=== PATIENT | female | born 1930 | race Caucasian/White ===

== ENCOUNTER → 2016-07-12 | Outpatient (CLI) | payer OTHER ==
[~2016-07-12] MED LIST: AMLO-110 PO; ASPI81TA28 PO; ATEN50TA8 PO; CALCTAB7 PO; FLUT0.15 NAE; ISOS60TA25 PO; METR0.7527 TOP; MULT-190 PO; MULT-513 PO; NTRGSL/4 UT; OMEG10007 PO; PRLSR20 PO; SIMV20TA2 PO; TRAZ50TA35 PO
--- NOTE | 2016-07-12 13:59 | MAMMOGRAPHY REPORT ---
BILATERAL DIGITAL SCREENING MAMMOGRAM WITH CAD: 07/12/2016 CLINICAL HISTORY: Routine screening. Patient has no complaints. TECHNIQUE: Bilateral CC and MLO views were obtained. Current study was also evaluated with a Comput er Aided Detection (CAD) system. COMPARISON: Comparison is made to exams dated: 06/29/2015 mammogram, 03/04/2013 mammogram, 02/08/2012 m ammogram, 02/06/2011 mammogram - [facility], and 01/29/2009. BREAST COMPOSITION: There are scattered areas of fibroglandular density in both breasts. FINDINGS: There are moderate vascular calcifications in both breasts. There is nodularity in the a nterior upper outer right breast that appears very similar dating back to at least , therefore likely benign. No new suspicious mass, architectural distortion or cluster of microcalcifications i s seen. IMPRESSION: ACR BI-RADS CATEGORY 2: BENIGN There is no mammographic evidence of malignancy. A 1 year screening mammogram is recommended. The p atient will receive written notification of the results. Approximately 10% of breast cancers are not detected with mammography. A negative mammographic repor t should not delay biopsy if a clinically suggestive mass is present. Margarita Holder M.D. ay/:07/12/2016 12:26:53 Lab Support Service Tech: Digna Hurtado, [facility] letter sent: Normal 1/2 BI-RADS Code: ACR BI-RADS Category 2: Benign
== END | disposition home or self-care (01) ==
LOC: C.MAMM 10:42
PROVIDERS: ATTEND Family Medicine
DX: Z12.31 Encounter for screening mammogram for malignant neoplasm of breast (principal)

== ENCOUNTER → 2016-08-21 | Outpatient (CLI) | payer OTHER ==
[2016-08-21 14:48] LABS: BLOOD UREA NITROGEN 21 mg/dl (7-18); BUN/CREATININE RATIO 21.2 (10-20); CALCIUM 8.9 mg/dl (8.5-10.1); CARBON DIOXIDE 29 mmol/L (21-32); CHLORIDE 100 mmol/L (98-107); GLUCOSE 120 mg/dl (70-99); POTASSIUM 4.1 mmol/L (3.5-5.1); SODIUM 138 mmol/L (136-145)
[2016-08-21 15:00] LABS: ALB/GLOB RATIO 1.1 (0.9-2); ALKALINE PHOSPHATASE 77 U/L (45-117); ALT/SGPT 19 U/L (12-78); AST/SGOT 18 U/L (15-37); CHOLESTEROL 142 mg/dl (0-200); CHOLESTEROL/HDL RATIO 3.8; HDL CHOLESTEROL 37 mg/dl; LDL CHOLESTEROL CALCULATED 71 mg/dl; TRIGLYCERIDES 172 mg/dl (0-150); VERY LOW DENSITY LIPOPROT CALC 34 mg/dl
== END | disposition home or self-care (01) ==
LOC: C.LABPVFM 08:33
PROVIDERS: ATTEND Family Medicine
DX: I25.10 Atherosclerotic heart disease of native coronary artery without angina pectoris (principal); E78.00 Pure hypercholesterolemia, unspecified; I10 Essential (primary) hypertension; K21.9 Gastro-esophageal reflux disease without esophagitis; J30.9 Allergic rhinitis, unspecified

== ENCOUNTER → 2016-12-01 | Outpatient (CLI) | payer OTHER ==
[~2016-12-01] MED LIST changes: +GLC/500 PO; +RANI150T3 PO
== END | disposition home or self-care (01) ==
LOC: C.LABPVFM 15:29
PROVIDERS: ATTEND Family Medicine
DX: R05 Cough (principal)

== ENCOUNTER 2017-03-07 22:04 | Emergency (ER) | payer OTHER ==
[~2017-03-07] VITALS: Ht 160 cm; Wt 66.7 kg
[2017-03-07 22:07] VITALS: TEMP 36.4; Ht 160 cm; Wt 66.7 kg
[2017-03-07 22:20] VITALS: O2SAT 96
[2017-03-07] MEDS ORDERED: CALCTAB7 PO (22:54)
[2017-03-07] MEDS ORDERED: MULT-190 PO (22:54)
[2017-03-07] MEDS ORDERED: ASPI81TA28 PO (22:54)
[2017-03-07] MEDS ORDERED: FLUT0.15 NAE (22:54)
[2017-03-07] MEDS ORDERED: METR0.7527 TOP (22:54)
[2017-03-07] MEDS ORDERED: OMEG10007 PO (22:54)
[2017-03-07] MEDS ORDERED: ATEN50TA8 PO (22:54)
[2017-03-07] MEDS ORDERED: ISOS60TA25 PO (22:54)
[2017-03-07] MEDS ORDERED: PRLSR20 PO (22:54)
[2017-03-07] MEDS ORDERED: TRAZ50TA35 PO (22:54)
[2017-03-07] MEDS ORDERED: NTRGSL/4 UT (22:54)
[2017-03-07] MEDS ORDERED: MULT-513 PO (22:54)
[2017-03-07] MEDS ORDERED: SIMV20TA2 PO (22:54)
[2017-03-07] MEDS ORDERED: AMLO-110 PO (22:54)
[2017-03-07 22:56] LABS: BASO % 0.3 %; BASO ABS # 0.03 K/uL (0-0.2); COMPLETE YES; EOS % 0.1 %; HEMATOCRIT 38.5 % (37-47); IG% 0.3 %; LYMPH % 15.1 %; LYMPH ABS # 1.75 K/uL (1.2-3.4); MEAN CELL VOLUME 85.6 fL (80-100); MEAN CORPUSCULAR HGB CONC 32.7 g/dl (32-36); MEAN PLATELET VOLUME 10.2 fL (7.4-10.4); MONO % 2.5 %; NEUT % 81.7 %; PLATELET COUNT 293 K/uL (130-400); WHITE BLOOD COUNT 11.62 K/uL (4.8-10.8)
[2017-03-07] MEDS ORDERED: ONDANSETRON INJ 2 MG/ML 2 ML VIAL IV STA (23:07)
[2017-03-07 23:09] LABS: URINE APPEARANCE CLEAR (CLEAR); URINE BILIRUBIN NEG (NEG); URINE COLOR YELLOW; URINE NITRITE NEG (NEG); URINE SPECIFIC GRAVITY 1.019 (1.000-1.030); UROBILINOGEN NEG (NEG); ZZUR CULT IF INDIC CLEAN CATCH NO
[2017-03-07 23:17] LABS: ALT/SGPT 19 U/L (12-78); BLOOD UREA NITROGEN 20 mg/dl (7-18); BUN/CREATININE RATIO 20.1 (10-20); CALCIUM 9.5 mg/dl (8.5-10.1); CARBON DIOXIDE 26 mmol/L (21-32); CHLORIDE 96 mmol/L (98-107); GLUCOSE 179 mg/dl (70-99); POTASSIUM 3.7 mmol/L (3.5-5.1); SODIUM 129 mmol/L (136-145)
[2017-03-07 23:20] LABS: ALKALINE PHOSPHATASE 89 U/L (45-117); AST/SGOT 18 U/L (15-37); MANUAL MICROSCOPIC REQUIRED? NO; REVIEW REQ? NO
--- NOTE | 2017-03-07 23:54 | EMERGENCY ROOM VISIT NOTE ---
History Report prepared by Adia: Jatinder Mcgill Under the Supervision of: Dr. Toby Leal D.O. First contact with patient: 22:18 Chief Complaint: HYPERTENSION Stated Complaint: LIGHTHEADED, NAUSEA, ELEVATED BP History of Present Illness The patient is a 87 year old female who presents to the Emergency Room with complaints of intermittent nausea beginning last week. The patient states that she has no abdominal pain, but she has a "funny feeling" in her epigastric area. She also complains of generalized weakness. She estimates that she has episodes of weakness every 35 minutes. The patient denies any fevers, vomiting or diarrhea. She was seen by her PCP yesterday and was told that her symptoms may be related to GERD. She was started on Omeprazole which she took for the first time today. She was also taken off of multiple medications. Source of History: patient Onset: last week Position: abdomen (epigastric) Quality: other (nausea) Timing: intermittent Associated Symptoms: + weakness (generalized), No fevers, No vomiting, No diarrhea Review of Systems See HPI for pertinent positives and negatives. A total of ten systems were reviewed and were otherwise negative. Past Medical & Surgical Medical Problems: (1) GERD (gastroesophageal reflux disease) Family History No pertinent family history stated. Social History Smoking Status: Never Smoker Housing Status: lives with family Current/Historical Medications Scheduled Amlodipine (Norvasc), 5 MG PO DAILY Aspirin (Aspirin Ec), 81 MG PO DAILY Atenolol (Tenormin), 50 MG PO DAILY Calcium Carbonate-Vitamin D W/ (Caltrate 600 Plus), 1 TAB PO DAILY Fish Oil ([place]-3), 1 CAP PO DAILY Fluticasone Propionate (Nasal) (Flonase Allergy Relief), 2 SPRAYS KRISTOFER DAILY Isosorbide Mononitrate Ext Rel (Imdur Ext Rel), 60 MG PO QAM Metronidazole (Topical) (Metrogel), 1 APPLN TOP DAILY Multivitamins/Minerals (Mvi With Minerals), 1 TAB PO DAILY Nitroglycerin (Nitrostat), 0.4 MG UT PRN Ocuvite Preservision (Ocuvite Preservision), 1 TAB PO DAILY Omeprazole (Prilosec), 20 MG PO BID Simvastatin (Zocor), 20 MG PO QPM Trazodone Hcl (Trazodone), 50 MG PO DAILY Allergies Uncoded Allergies: DIFLUNISAL (Generic Allergy) (Allergy, Unknown, Y, 08/16/15) DOLOBID (Allergy, Unknown, 08/14/02) N (Allergy, Unknown, 08/14/02) NONSTEROIDAL (Allergy, Unknown, 08/16/15) Physical Exam Vital Signs Date Time Temp Pulse Resp B/P (MAP) Pulse Ox O2 Delivery O2 Flow Rate FiO2 03/07/17 23:05 72 18 167/76 95 Room Air 03/07/17 22:20 96 Room Air 03/07/17 22:19 74 03/07/17 22:07 36.4 72 18 181/76 96 Room Air Physical Exam GENERAL: Awake, alert, well-appearing, in no distress HENT: Normocephalic, atraumatic. Oropharynx unremarkable. EYES: Normal conjunctiva. Sclera non-icteric. NECK: Supple. No nuchal rigidity. FROM. No JVD. RESPIRATORY: Clear to auscultation. CARDIAC: Regular rate, normal rhythm. Extremities warm and well perfused. Pulses equal. ABDOMEN: Soft, non-distended. No tenderness to palpation. No rebound or guarding. No masses. RECTAL: Deferred. MUSCULOSKELETAL: Chest examination reveals no tenderness. The back is symmetrical on inspection without obvious abnormality. There is no CVA tenderness to palpation. No joint edema. LOWER EXTREMITIES: Calves are equal size bilaterally and non-tender. No edema. No discoloration. NEURO: Normal sensorium. No sensory or motor deficits noted. SKIN: No rash or jaundice noted. PSYCH: Anxious. Medical Decision & Procedures ER Provider Diagnostic Interpretation: CT results per statrad and my review. CT ABDOMEN & PELVIS: No evidence of appendicitis, colitis, or diverticulitis. Small hiatal hernia. Cardiomegaly. No radiodense gallstones. No renal calculi or obstructive changes. Hysterectomy. Lipoma in a small bowel segment in the right lower abdomen. 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 Compression deformity of T11. Laboratory Results 03/07/17 22:35 Red Blood Count 4.50, Mean Corpuscular Volume 85.6, Mean Corpuscular Hemoglobin 28.0, Mean Corpuscular Hemoglobin Concent 32.7, Mean Platelet Volume 10.2, Neutrophils (%) (Auto) 81.7, Lymphocytes (%) (Auto) 15.1, Monocytes (%) (Auto) 2.5, Eosinophils (%) (Auto) 0.1, Basophils (%) (Auto) 0.3, Neutrophils # (Auto) 9.51, Lymphocytes # (Auto) 1.75, Monocytes # (Auto) 0.29, Eosinophils # (Auto) 0.01, Basophils # (Auto) 0.03 03/07/17 22:35 Test 03/07/17 22:35 White Blood Count 11.62 K/uL (4.8-10.8) Red Blood Count 4.50 M/uL (4.2-5.4) Hemoglobin 12.6 g/dL (12.0-16.0) Hematocrit 38.5 % (37-47) Mean Corpuscular Volume 85.6 fL (80-100) Mean Corpuscular Hemoglobin 28.0 pg (25-34) Mean Corpuscular Hemoglobin Concent 32.7 g/dl (32-36) Platelet Count 293 K/uL (130-400) Mean Platelet Volume 10.2 fL (7.4-10.4) Neutrophils (%) (Auto) 81.7 % Lymphocytes (%) (Auto) 15.1 % Monocytes (%) (Auto) 2.5 % Eosinophils (%) (Auto) 0.1 % Basophils (%) (Auto) 0.3 % Neutrophils # (Auto) 9.51 K/uL (1.4-6.5) Lymphocytes # (Auto) 1.75 K/uL (1.2-3.4) Monocytes # (Auto) 0.29 K/uL (0.11-0.59) Eosinophils # (Auto) 0.01 K/uL (0-0.5) Basophils # (Auto) 0.03 K/uL (0-0.2) RDW Standard Deviation 39.8 fL (36.4-46.3) RDW Coefficient of Variation 12.6 % (11.5-14.5) Immature Granulocyte % (Auto) 0.3 % Immature Granulocyte # (Auto) 0.03 K/uL (0.00-0.02) Urine Color YELLOW Urine Appearance CLEAR (CLEAR) Urine pH 7.0 (4.5-7.5) Urine Specific [place] 1.019 (1.000-1.030) Urine Protein 3+ (NEG) Urine Glucose (UA) NEG (NEG) Urine Ketones NEG (NEG) Urine Occult Blood NEG (NEG) Urine Nitrite NEG (NEG) Urine Bilirubin NEG (NEG) Urine Urobilinogen NEG (NEG) Urine Leukocyte Esterase NEG (NEG) Urine WBC (Auto) 1-5 /hpf (0-5) Urine RBC (Auto) 0-4 /hpf (0-4) Urine Hyaline Casts (Auto) 0 /lpf (0-5) Urine Epithelial Cells (Auto) 10-20 /lpf (0-5) Urine Bacteria (Auto) NEG (NEG) Anion Gap 7.0 mmol/L (3-11) Est Creatinine Clear Calc Drug Dose 37.7 ml/min Estimated GFR () 59.5 Estimated GFR (Non- 51.3 BUN/Creatinine Ratio 20.1 (10-20) Calcium Level 9.5 mg/dl (8.5-10.1) Total Bilirubin 0.4 mg/dl (0.2-1) Direct Bilirubin < 0.1 mg/dl (0-0.2) Aspartate Amino Transf (AST/SGOT) 18 U/L (15-37) Alanine Aminotransferase (ALT/SGPT) 19 U/L (12-78) Alkaline Phosphatase 89 U/L (45-117) Total Protein 8.3 gm/dl (6.4-8.2) Albumin 4.2 gm/dl (3.4-5.0) Lipase 93 U/L (73-393) Laboratory results reviewed by me Medications Administered Medications (Trade) Dose Ordered Sig/Jose A Route Start Time Stop Time Status Last Admin Dose Admin Ondansetron HCl (Zofran Inj) 4 mg NOW STAT IV 03/07/17 23:07 03/07/17 23:08 DC 03/07/17 23:13 4 MG ED Course 2220: The patient was evaluated in room C1B. A complete history and physical exam was performed. 2306: Ordered Zofran Inj 4 mg IV. 2354: I reevaluated the patient. Discussed results and discharge instructions: she verbalized understanding and agreement. The patient is ready for discharge. Medical Decision Differential diagnoses include but are not limited to; gastritis, gastroenteritis, anxiety, metabolic derangement, and GERD. Repeat examination the patient at 2355 she smiling resting in no distress her blood pressure is decreased she has no significant abdominal pain she is no current chest pain shortness of breath. I discussed the findings with the patient patient's and the patient's daughter. Patient had been treated with IV Zofran she felt much improved. I do not think that she has an intra- abdominal process at this time she was told that she has acid reflux by her primary care physician. She will return for worsening symptoms or any concerns Medication Reconcilliation Current Medication List: was personally reviewed by me Blood Pressure Screening Patient's blood pressure: Elevated blood pressure Blood pressure disposition: Referred to PCP Impression Primary Impression: Nausea Additional Impression: Anxiety Scribe Attestation The scribe's documentation has been prepared under my direction and personally reviewed by me in its entirety. I confirm that the note above accurately reflects all work, treatment, procedures, and medical decision making performed by me. Departure Information Dispostion Home / Self-Care Referrals Karlo Leon M.D. (PCP) Patient Instructions ED Nausea Vomiting, My [facility] Additional Instructions Follow-up with your primary care physician this week and repeat lab work regarding her sodium within one week and return for any concerns or worsening of symptoms Problem Qualifiers
[2017-03-08] MEDS ORDERED: ONDANSETRON HOME PACK 4MG OD TAB PO ONE
[2017-03-08 00:10] VITALS: BP 151/72; PULSE 73; O2SAT 96
--- NOTE | 2017-03-08 06:48 | DIAGNOSTIC IMAGING REPORT ---
ABD/PELVIS NO IV OR ORAL CONT CT DOSE: 382.77 mGy.cm HISTORY: Pain. pain TECHNIQUE: Multiaxial CT images of the abdomen and pelvis were performed without contrast. A dose lowering technique was utilized adhering to the principles of ALARA. COMPARISON STUDY: None. FINDINGS: Minimal bibasilar interstitial change lung bases. No focal infiltrate. Size and configuration of liver spleen and pancreas are unremarkable. Gallbladder is negative for distention. Kidneys negative for calcification or hydronephrosis. The adrenal glands are unremarkable. Nonobstructive bowel pattern. No significant abdominal or pelvic adenopathy. Slight wall thickening of the sigmoid colon with a trace amount of pericolonic of altered change. This presumably is chronic. Prior hysterectomy. Degenerative changes thoracolumbar spine considered nonacute. IMPRESSION: 1. Potential low-grade nonspecific colitis involving the sigmoid, versus technical lack of distention. 2. Otherwise negative study of the abdomen and pelvis. The above report was generated using voice recognition software. It may contain grammatical, syntax or spelling errors. Electronically signed by: Eldon Valero M.D. 03/08/2017 6:46 AM Dictated Date/Time: 03/08/2017 6:43 AM
== END 2017-03-08 00:12 | disposition home or self-care (01) ==
LOC: C.EDB 22:06 → C.EDC 03-08 00:12
DX: R11.0 Nausea (principal); F41.9 Anxiety disorder, unspecified; K21.9 Gastro-esophageal reflux disease without esophagitis; Z79.82 Long term (current) use of aspirin; Z79.899 Other long term (current) drug therapy; Z88.8 Allergy status to other drugs, medicaments and biological substances

== ENCOUNTER → 2017-03-14 | Outpatient (CLI) | payer OTHER ==
[~2017-03-14] MED LIST changes: -GLC/500 PO; -RANI150T3 PO
[2017-03-14 13:12] LABS: ALB/GLOB RATIO 0.9 (0.9-2); ALKALINE PHOSPHATASE 84 U/L (45-117); ALT/SGPT 20 U/L (12-78); AST/SGOT 16 U/L (15-37); BLOOD UREA NITROGEN 20 mg/dl (7-18); BUN/CREATININE RATIO 18.1 (10-20); CALCIUM 8.9 mg/dl (8.5-10.1); CARBON DIOXIDE 30 mmol/L (21-32); CHLORIDE 101 mmol/L (98-107); ESTIMATED AVERAGE GLUCOSE 163 mg/dl; GLUCOSE 137 mg/dl (70-99); HA1C FLAG Normal (Normal); HDL CHOLESTEROL 35 mg/dl; POTASSIUM 3.9 mmol/L (3.5-5.1); SODIUM 137 mmol/L (136-145)
[2017-03-14 13:13] LABS: CHOLESTEROL 161 mg/dl (0-200); CHOLESTEROL/HDL RATIO 4.6; LDL CHOLESTEROL CALCULATED 87 mg/dl; TRIGLYCERIDES 197 mg/dl (0-150); VERY LOW DENSITY LIPOPROT CALC 39 mg/dl
== END | disposition home or self-care (01) ==
LOC: C.LABPVFM 07:43
PROVIDERS: ATTEND Family Medicine
DX: E78.00 Pure hypercholesterolemia, unspecified (principal); I10 Essential (primary) hypertension; R73.9 Hyperglycemia, unspecified

== ENCOUNTER → 2017-05-11 | Day surgery (SDC) | payer OTHER ==
[2017-05-03 09:00] VITALS: Ht 157.5 cm; Wt 62.0 kg
[~2017-05-11] VITALS: Ht 157.5 cm; Wt 62.0 kg
[~2017-05-11] MED LIST changes: +ATROPINE SULFATE 0.1 MG/ML 5ML SYR IV PRN; +EpHEDrine SULFATE INJ 50 MG/ML AMP IV PRN; +FENTANYL CITRATE INJ 50 MCG/1 ML 2 ML VIAL IV PRN; +GLC/500 PO; +KETAMINE HCL INJ 50 MG/ML 10 ML VIAL ONE; +LACTATED RINGER'S 1000ML 1,000 ML IV SCH; +LIDOCAINE HCL 2% 2 ML VIAL (20MG/ML) ONE; +MIDAZOLAM HCL 1 MG/ML 2ML VIAL ONE; +PROPOFOL IV EMULSION 10 MG/ML 20 ML VIAL IV ONE; +RANI150T3 PO; +SODIUM CHLORIDE 0.9% 500ML 500 ML IV ONE; -TRAZ50TA35 PO
[2017-05-11 08:16] VITALS: BP 185/91; PULSE 56; TEMP 37.3; O2SAT 95
--- NOTE | 2017-05-11 08:42 | Endo History and Physical ---
History & Physical Date of Service: May 11, 2017. Chief Complaint: Referring Physician: History of Present Illness 87 year old female patient of Karlo Leon at [facility] [place], with a hx of A-fib ( no anticoagulation and pt does not recall being told that she has this dx), ischemic heart disease on nitroglycerine, GERD (dx'ed about a month ago by Dr. Vieira), hyperlipidemia,~IBS, new dx of DM recently started on Metformin. In the beginning of Mar she began to has a nauseous feeling in the upper stomach, worse after eating, intermittent but present most of the time. She denies and stomach pain but did have discomfort around her right side to her shoulder blade. She describes this as nausea, shaking and weakness. She was started on metformin but is sure these symptoms started prior to the metformin. She has lost about 20 lbs in the past few months but is trying to due to new dx of DM. She went to [facility] ED for these symptoms in the beginning of Mar where non contrast CT scan suggested mild colitis. She doesn't believe diarrhea at the time, but does have loose stools "off and on. Past Surgical History Hx Cardiac Surgery: Yes (CARDIAC CATH DIAGNOSTIC) Hx Abdominal Surgery: Yes (HYSTERECTOMY) Hx Post-Op Nausea and Vomiting: No Hx Cancer Surgery: No Hx Thoracic Surgery: No Hx Orthopedic: No Hx Urinary Tract Surgery: No Social History Smoking Status: Never Smoker Hx Substance Use: No Hx Alcohol Use: No Allergies Coded Allergies: Diflunisal (Verified Allergy, Unknown, SWELLING, 05/11/17) Current Medications Reported Home Medications Medications Dose Route/Sig Max Daily Dose Days Date Category Dose Instructions Glucophage (Metformin Hcl) 500 Mg Tab 500 Mg PO BID 05/03/17 Reported Zantac (Ranitidine HCl) 150 Mg Tab 150 Mg PO QAM 05/03/17 Reported [place]-3 (Fish Oil) 1 Ea Cap 1 Cap PO DAILY 03/07/17 Reported Zocor (Simvastatin) 20 Mg Tab 20 Mg PO QPM 03/07/17 Reported Ocuvite Preservision (Multivitamins/Minerals) 1 Tab Tab 1 Tab PO BID 03/07/17 Reported Prilosec (Omeprazole) 20 Mg Capcr 20 Mg PO BID 03/07/17 Reported CURRENTLY ON HOLD FOR OTHER TESTING Nitrostat (Nitroglycerin) 0.4 Mg Tab 0.4 Mg UT PRN 03/07/17 Reported Mvi With Minerals (Multivitamins/Minerals) Tab 1 Tab PO DAILY 03/07/17 Reported Metrogel (Metronidazole (Topical)) 0.75 % Gel 1 Appln TOP DAILY 03/07/17 Reported Imdur Ext Rel (Isosorbide Mononitrate) 60 Mg Ertab 60 Mg PO QAM 03/07/17 Reported Flonase Allergy Relief (Fluticasone Propionate (Nasal)) 50 Mcg/Act Spr 2 Sprays KRISTOFER DAILY 03/07/17 Reported Caltrate 600 Plus (Calcium Carbonate-Vitamin D W/) 1 Tab Tab 1 Tab PO DAILY 03/07/17 Reported Tenormin (Atenolol) 50 Mg Tab 50 Mg PO DAILY 03/07/17 Reported Aspirin Ec (Aspirin) 81 Mg Tab 81 Mg PO DAILY 03/07/17 Reported Norvasc (Amlodipine Besylate) 5 Mg Tab 5 Mg PO DAILY 03/07/17 Reported Vital Signs Weight (Kilograms): 62 Height (Feet): 5 Height (Inches): 2 Date Time Temp Pulse Resp B/P (MAP) Pulse Ox O2 Delivery O2 Flow Rate FiO2 05/11/17 08:16 37.3 56 18 185/91 (122) 95 Room Air Physical Exam General Appearance: WD/WN, + thin Respiratory/Chest: Respiratory effort: no dyspnea Auscultation: breath sounds normal, CTA except as noted Cardiovascular: Apical Impulse: not displaced Heart Auscultation: RRR, normal S1, normal S2 Abdomen: Bowel Sounds: normal Inspection & Palpation: soft, non-distended Assessment and Plan 87 yo presenting for EGD/EUS for nausea and weight loss
--- NOTE | 2017-05-11 09:51 | GI REPORT ---
Procedure Date: 05/11/2017 9:00 AM Procedure: Upper GI endoscopy Indications: Nausea Medicines: General Anesthesia Complications: No immediate complications. Estimated blood loss: None. Estimated Blood Loss: Estimated blood loss: none. Procedure: Pre-Anesthesia Assessment: - Pre-Anesthesia Assessment: - Prior to the procedure, a History and Physical was performed, and patient medications, allergies and sensitivities were reviewed. The patient's tolerance of previous anesthesia was reviewed. Please see [employer] for complete details. - The risks and benefits of the procedure and the sedation options and risks were discussed with the patient. All questions were answered and informed consent was obtained. - Patient identification and proposed procedure were verified prior to the procedure by the physician and the nurse. The procedure was verified in the pre-procedure area in the procedure room. After obtaining informed consent, the endoscope was passed carefully and meticuously under direct vision and only advanced when the lumen was clearly identified, C02 insuflation was utilized throughout the entirity of the procedure. Throughout the procedure, the patient's blood pressure, pulse, and oxygen saturations were monitored continuously. After obtaining informed consent, the endoscope was passed under direct vision. Throughout the procedure, the patient's blood pressure, pulse, and oxygen saturations were monitored continuously. The scope was introduced through the mouth, and advanced to the second part of duodenum. The upper GI endoscopy was accomplished without difficulty. The patient tolerated the procedure well. Findings: A large hiatus hernia was present. The entire examined stomach was normal. Biopsies were taken with a cold forceps for histology. The examined duodenum was normal. Biopsies were taken with a cold forceps for histology. Impression: - Large hiatus hernia. - Normal stomach. Biopsied. - Normal examined duodenum. Biopsied. Recommendation: - Await pathology results. - Discharge patient to home (with escort). - Use Prilosec (omeprazole) 20 mg PO daily as a trial. - High caloric nutritional supplements. Andi Aguillon MD 05/11/2017 9:51:04 AM This report has been signed electronically. Note Initiated On: 05/11/2017 9:00 AM I attest to the content of the Intraoperative Record and orders documented therein, exceptions below
--- NOTE | 2017-05-11 09:53 | GI REPORT ---
Procedure Date: 05/11/2017 8:59 AM Procedure: Upper EUS Indications: Generalized abdominal distress, Weight loss Medicines: General Anesthesia Complications: No immediate complications. Estimated blood loss: None. Estimated Blood Loss: Estimated blood loss: none. Procedure: Pre-Anesthesia Assessment: - Pre-Anesthesia Assessment: - Prior to the procedure, a History and Physical was performed, and patient medications, allergies and sensitivities were reviewed. The patient's tolerance of previous anesthesia was reviewed. Please see [employer] for complete details. - The risks and benefits of the procedure and the sedation options and risks were discussed with the patient. All questions were answered and informed consent was obtained. - Patient identification and proposed procedure were verified prior to the procedure by the physician and the nurse. The procedure was verified in the pre-procedure area in the procedure room. After obtaining informed consent, the endoscope was passed carefully and meticuously under direct vision and only advanced when the lumen was clearly identified, C02 insuflation was utilized throughout the entirity of the procedure. Throughout the procedure, the patient's blood pressure, pulse, and oxygen saturations were monitored continuously. After obtaining informed consent, the endoscope was passed under direct vision. Throughout the procedure, the patient's blood pressure, pulse, and oxygen saturations were monitored continuously. The Endosonoscope was introduced through the mouth, and advanced to the second part of duodenum. The upper EUS was accomplished without difficulty. The patient tolerated the procedure well. Findings: Endosonographic Finding : There was no sign of significant endosonographic abnormality in the left lobe of the liver. There was no sign of significant endosonographic abnormality in the entire pancreas. The pancreas was well visualized, no pathologic lymphadenopathy, no masses, no cysts, no calcifications, the pancreatic duct was well visualized from ampulla to tail, the pancreatic duct was thin in caliber, the pancreatic duct was regular in contour. No lymphadenopathy seen. There was no sign of significant endosonographic abnormality involving the celiac trunk. There was no sign of significant endosonographic abnormality in the common bile duct. The maximum diameter of the duct was 4 mm. An unremarkable gallbladder was identified. Impression: - There was no evidence of significant pathology in the left lobe of the liver. - There was no sign of significant pathology in the entire pancreas. - The celiac trunk was endosonographically normal. - There was no sign of significant pathology in the common bile duct. - No specimens collected. Recommendation: - Discharge patient to home (with escort). - Return to referring physician as previously scheduled. Andi Aguillon MD 05/11/2017 9:53:01 AM This report has been signed electronically. Note Initiated On: 05/11/2017 8:59 AM I attest to the content of the Intraoperative Record and orders documented therein, exceptions below
--- NOTE | 2017-05-11 09:59 | Discharge Instructions ---
Endoscopy Patient Instructions Date / Procedure(s) Performed May 11, 2017. EGD, Other (EUS) Allergy Information Coded Allergies: Diflunisal (Verified Allergy, Unknown, SWELLING, 05/11/17) Discharge Date / Findings May 11, 2017. Large Hiatal Hernia Otherwise normal Exam Biopsies were taken and you will be contacted with the results We will start you on a trial of an antacid to see if helps symptoms Provider Instructions Activity Restrictions - No exercising or heavy lifting for 24 hours. - Do not drink alcohol the day of the procedure. - Do not drive a car or operate machinery until the day after the procedure. - Do not make any important decisions or sign important papers in 24 hours after the procedure. Following Day: - Return to full activity which may include returning to work/school. Diet Start your diet with liquids and light foods (jello, soup, juice, toast). Then eat your usual diet if not nauseated. Treatment For Common After Affects For mild abdominal pain, bloating, or excessive gas: - Rest - Eat lightly - Lie on right side Follow-Up Information Follow-up with as scheduled Anesthesia Information What You Should Know You have had a procedure that required some medicine to reduce anxiety and discomfort. This treatment is called moderate sedation. After receiving the treatment, you may be sleepy, but you will be able to breathe on your own. The effects of the treatment may last for several hours. Follow these instructions along with Activity/Diet recommendations noted above: * Do NOT do anything where dizziness or clumsiness would be dangerous. * Rest quietly at home today, then you can be up and about tomorrow. * Have a responsible person stay with you the rest of today. * You may have had an I.V. today. If so, you may take the dressing off later today. Recommendations Call your doctor if: * Trouble breathing * Continuous vomiting for more than 24 hours * Temperature above 101 degrees * Severe abdominal pain or bloating * Pain not relieved by pain medicine ordered * There is increased drainage or redness from any incision * A large amount of rectal bleeding greater than 2-3 tablespoons. (If you had a polyp/s removed or have hemorrhoids, a small amount of blood - from the rectum is to be expected.) * You have any unanswered questions or concerns. IN THE EVENT OF A SERIOUS EMERGENCY, GO TO THE NEAREST EMERGENCY ROOM Your discharge instructions were prepared by provider Andi Aguillon. Patient Instructions Signature Page Shaneka Howard Patient (or Guardian) Signature/Date: I have read and understand the instructions given to me by my caregivers. Caregiver/RN/Doctor Signature/Date: The above-named patient and/or guardian has received patient instructions on this date. + Original Patient Signature Page (only) stays with chart. Please make copy for patient.
--- NOTE | 2017-05-11 10:03 | Anesthesiology Progress Note ---
Anesthesia Post Op Note Date & Time May 11, 2017 at 10:03 Vital Signs Pain Intensity: 0 Vital Signs Past 12 Hours Date Time Temp Pulse Resp B/P (MAP) Pulse Ox O2 Delivery O2 Flow Rate FiO2 05/11/17 09:55 51 17 158/66 98 Room Air 05/11/17 09:49 36.0 63 17 156/70 100 Oxymask 5 05/11/17 08:16 37.3 56 18 185/91 (122) 95 Room Air Notes Mental Status: alert / awake / arousable, participated in evaluation Pt Amnestic to Procedure: Yes Nausea / Vomiting: adequately controlled Pain: adequately controlled Airway Patency, RR, SpO2: stable & adequate BP & HR: stable & adequate Hydration State: stable & adequate Anesthetic Complications: no major complications apparent
[2017-05-11 10:15] VITALS: BP 170/74; PULSE 56; TEMP 36.5; O2SAT 96
[2017-05-11 10:44] VITALS: BP 161/73; PULSE 56; O2SAT 97
[2017-05-11 11:15] VITALS: BP 157/69; PULSE 54; TEMP 36.4; O2SAT 95
== END | disposition home or self-care (01) ==
LOC: C.ACU 07:08
PROVIDERS: ATTEND Internal Medicine
DX: K29.80 Duodenitis without bleeding (principal); K44.9 Diaphragmatic hernia without obstruction or gangrene; R63.4 Abnormal weight loss; I48.91 Unspecified atrial fibrillation; I25.9 Chronic ischemic heart disease, unspecified; E78.5 Hyperlipidemia, unspecified; E11.9 Type 2 diabetes mellitus without complications; K21.9 Gastro-esophageal reflux disease without esophagitis; K58.9 Irritable bowel syndrome, unspecified; Z79.82 Long term (current) use of aspirin; Z79.84 Long term (current) use of oral hypoglycemic drugs; Z79.899 Other long term (current) drug therapy

== ENCOUNTER → 2017-05-21 | Outpatient (CLI) | payer OTHER ==
[~2017-05-21] MED LIST changes: -ATROPINE SULFATE 0.1 MG/ML 5ML SYR IV PRN; -EpHEDrine SULFATE INJ 50 MG/ML AMP IV PRN; -FENTANYL CITRATE INJ 50 MCG/1 ML 2 ML VIAL IV PRN; -KETAMINE HCL INJ 50 MG/ML 10 ML VIAL ONE; -LACTATED RINGER'S 1000ML 1,000 ML IV SCH; -LIDOCAINE HCL 2% 2 ML VIAL (20MG/ML) ONE; -MIDAZOLAM HCL 1 MG/ML 2ML VIAL ONE; -PROPOFOL IV EMULSION 10 MG/ML 20 ML VIAL IV ONE; -SODIUM CHLORIDE 0.9% 500ML 500 ML IV ONE
--- NOTE | 2017-05-21 10:13 | DIAGNOSTIC IMAGING REPORT ---
(BARIUM SWALLOW) ESOPHAGUS CLINICAL HISTORY: UPPER GASTRIC PAIN,NAUSEA,HIATAL HERNIA COMPARISON STUDY: None. FLUOROSCOPY TIME: 0.9 minutes. 28 images submitted. FINDINGS: The patient swallowed barium without difficulty. The esophagus normal in course and caliber. Small hiatus hernia. Mild esophageal dysmotility. No gaseous of reflux. The barium tablet passed without difficulty. The contours of the hypopharynx are within normal limits. IMPRESSION: 1. Small hiatus hernia. 2. Mild esophageal dysmotility. Electronically signed by: Beau Betancourt M.D. 05/21/2017 10:11 AM Dictated Date/Time: 05/21/2017 9:30 AM
== END | disposition home or self-care (01) ==
LOC: C.RAD 08:59
PROVIDERS: ATTEND Nurse Practitioner Family
DX: R10.13 Epigastric pain (principal); R11.0 Nausea; K44.9 Diaphragmatic hernia without obstruction or gangrene; K22.4 Dyskinesia of esophagus

== ENCOUNTER → 2017-06-28 | Outpatient (CLI) | payer OTHER ==
[2017-06-28 18:08] LABS: ALT/SGPT 15 U/L (12-78); BLOOD UREA NITROGEN 20 mg/dl (7-18); BUN/CREATININE RATIO 21.8 (10-20); CALCIUM 8.9 mg/dl (8.5-10.1); CARBON DIOXIDE 29 mmol/L (21-32); CHLORIDE 100 mmol/L (98-107); CREATININE 0.93 mg/dl (0.60-1.20); GLUCOSE 112 mg/dl (70-99); POTASSIUM 4.2 mmol/L (3.5-5.1); SODIUM 133 mmol/L (136-145)
[2017-06-28 18:11] LABS: ALB/GLOB RATIO 0.9 (0.9-2); ALKALINE PHOSPHATASE 70 U/L (45-117); AST/SGOT 14 U/L (15-37)
[2017-06-29 06:36] LABS: ESTIMATED AVERAGE GLUCOSE 151 mg/dl; HA1C FLAG Normal (Normal)
== END | disposition home or self-care (01) ==
LOC: C.LABPVFM 11:30
PROVIDERS: ATTEND Family Medicine
DX: E11.9 Type 2 diabetes mellitus without complications (principal)

== ENCOUNTER → 2017-10-29 | Outpatient (CLI) | payer OTHER ==
[2017-10-29 13:19] LABS: HEMOGLOBIN A1C 6.7 % (4.5-5.6)
[2017-10-29 13:42] LABS: ALBUMIN 3.8 gm/dl (3.4-5.0); ALT/SGPT 26 U/L (12-78); AST/SGOT 29 U/L (15-37); CALCIUM 8.8 mg/dl (8.5-10.1); CARBON DIOXIDE 31 mmol/L (21-32); CHOLESTEROL 128 mg/dl (0-200); CREATININE 0.95 mg/dl (0.60-1.20); GLUCOSE 114 mg/dl (70-99); SODIUM 135 mmol/L (136-145)
[2017-10-29 13:45] LABS: ALKALINE PHOSPHATASE 66 U/L (45-117); LDL CHOLESTEROL CALCULATED 58 mg/dl; TOTAL PROTEIN 7.6 gm/dl (6.4-8.2)
[2017-10-29 13:51] LABS: BLOOD UREA NITROGEN 31 mg/dl (7-18)
== END | disposition home or self-care (01) ==
LOC: C.LABPVFM 07:34
PROVIDERS: ATTEND Family Medicine
DX: I25.10 Atherosclerotic heart disease of native coronary artery without angina pectoris (principal); E78.00 Pure hypercholesterolemia, unspecified; G47.00 Insomnia, unspecified; J01.90 Acute sinusitis, unspecified; J30.9 Allergic rhinitis, unspecified; I10 Essential (primary) hypertension; E11.9 Type 2 diabetes mellitus without complications

== ENCOUNTER 2021-07-13 12:03 | Inpatient (IN) ==
[2021-07-13] MEDS ORDERED: PIPERACILLIN/TAZOBACTAM 4.5 GM/120 ML BAG IV ONE (12:27)
[2021-07-13] MEDS ORDERED: PIPERACILL/TAZOBAC CONSULT ACTIVE PRN ×2 (12:27→17:26)
[2021-07-13] MEDS ORDERED: OPTIRAY 320 125ml IV ONE (12:30)
[2021-07-13 12:31] LABS: iSTAT Creatinine 1.1 mg/dl (0.6-1.3); iSTAT Hemoglobin 9.2 g/dl (12.0-16.0); iSTAT Ionized Calcium 1.12 mmol/l (1.12-1.32); iSTAT Potassium 4.6 mmol/L (3.3-5.0)
[2021-07-13 12:37] LABS: Basophils # (auto) 0.02 K/uL (0-0.2); Basophils % (auto) 0.1 %; Eosinophils # (auto) 0.03 K/uL (0-0.5); Eosinophils % (auto) 0.2 %; Hematocrit (blood only) 28.1 % (37-47); Immature Granulocytes # (auto) 0.05 K/uL (0.00-0.02); Immature Granulocytes % (auto) 0.3 %; Lymphocytes # (auto) 0.94 K/uL (1.2-3.4); Lymphocytes % (auto) 5.5 %; Mean Corpuscular Hemoglobin 29.8 pg (25-34); Mean Platelet Volume 10.3 fL (7.4-10.4); Monocytes # (auto) 0.92 K/uL (0.11-0.59); Monocytes % (auto) 5.4 %; Neutrophils # (auto) 14.99 K/uL (1.4-6.5); Neutrophils % (auto) 88.5 %; Platelet Count 438 K/uL (130-400); RDW Coefficient of Variation 13.6 % (11.5-14.5); RDW Standard Deviation 45.8 fL (36.4-46.3); Red Blood Count 3.02 M/uL (4.2-5.4); White Blood Count 16.95 K/uL (4.8-10.8)
--- NOTE | 2021-07-13 12:48 | Emergency Department Note ---
Impression & Plan Ischemic cerebrovascular accident (CVA), Pneumonia, Hypoxia, Anemia ED Provider Note NAME: KRISTA LEWIS AGE: 89 SEX: F : 1930 ARRIVES VIA: Ambulance INFORMANT: Patient, EMS, the patient's son ED PROVIDER(S): Sonny Lucas DO CHIEF COMPLAINT: Weakness HPI: The patient is an 89-year-old female who presented to emergency department for an evaluation of weakness. The patient has been having symptoms for approximately 5 days. She has had multiple falls recently. Her son does provide some of the history as well as EMS. The patient was noted to have worsening symptoms today as well as difficulty breathing. 911 was called. The patient was noted to have right-sided weakness and left-sided facial droop. She was not made a stroke alert initially upon arrival. The patient self denies having any chest pain. She denies having any abdominal pain. She does state that she is having difficulty breathing. The patient does not have a history of stroke. Reportedly she does not take blood thinners. She has had no dysuria or frequency. There is been no fevers noted. ROS: See above HPI for pertinent positives & negatives. A total of 10 systems reviewed and were otherwise negative. PAST MEDICAL HISTORY: See Below PAST SURGICAL HISTORY: See Below FAMILY HISTORY: See Below SOCIAL HISTORY: See Below HOME MEDICATIONS: See Below ALLERGIES: See Below VITALS: See Below PHYSICAL EXAMINATION: GENERAL: The patient is awake and alert. The patient is very anxious appearing. EYES: The conjunctivae are clear. The pupils are round and reactive. EARS, NOSE, MOUTH AND THROAT: The nose is without any evidence of any deformity. NECK: The neck is nontender and supple. RESPIRATORY: Diminished breath sounds are noted on the right lung field. There was significant tachypnea and conversational dyspnea. CARDIOVASCULAR: Regular rate and rhythm noted there no murmurs rubs or gallops normal S1 normal S2. GASTROINTESTINAL: The abdomen is soft and mildly distended. There is no tenderness guarding rigidity. Rectal exam revealed light brown stool which was heme-negative. MUSCULOSKELETAL/EXTREMITIES: There is no evidence of gross deformity full range of motion is noted in the hips and shoulders. SKIN: The skin is warm and dry. There is no significant pedal edema. NEUROLOGIC: Patient is awake and oriented to person place and situation. The patient has decreased teaching young strength in the right upper extremity. The patient is unable to lift the right leg off the bed. The patient has a left-sided facial droop with forehead sparing. MEDICAL DECISION MAKING: The patient is an 89-year-old female who presented to emergency department for an evaluation of right-sided weakness. According to her son the symptoms have been ongoing for the last 5 days. She has been falling. She was noted to have significant respiratory distress upon arrival to the emergency department. X- ray revealed a large pneumonia. I discussed the patient's laboratory and radiographic studies with her and her family members. She also appears to have an ischemic stroke based on physical exam. She was not a candidate for tPA or large vessel occlusion as her symptoms have been ongoing for 5 days. The patient was treated with IV antibiotics. She was placed on supplemental oxygen. She was reevaluated multiple times. Triage Nursing notes reviewed. Prior medical records reviewed Vital Signs: reviewed and remarkable for elevated blood pressure, low-grade fever, tachypnea. She was also noted to have hypoxia. Differential diagnosis: Infection, dehydration, metabolic abnormality, hypo/hyperglycemia, electrolyte disturbance, anemia, hypoxia, cardiac sources, intracerebral event, toxicologic, neurologic, as well as other pathologies. ER treatment provided: See below Diagnostics interpreted by me: ECG: EKG was obtained in the emergency department. My interpretation is normal sinus rhythm at 63 bpm. There is no ectopy. Inferior T wave abnormalities were noted. This was compared to a tracing from 05/11/2017. The changes are new co mpared to the earlier tracing. Cardiac Monitoring: An order was placed for continuous cardiac monitoring. The monitor shows a rate of 60 bpm with sinus rhythm. Laboratory studies: As stated above and show below. Imaging studies: See below Consultation(s): I discussed this case with Hector who is on for the [facility] jackie white. ED COURSE: Procedures: none Critical Care: I have personally spent greater than 55 minutes of critical care time in the direct management of this patient. This includes bedside care, interpretation of diagnostic studies, and testing, discussion with consultants, patient, and family members, and other required patient management activities. This 55 minutes is in excess of all separately billable procedures. Past Med/Surg History Medical History Back pain Carpal tunnel syndrome on both sides Cognitive changes Diabetes mellitus DJD (degenerative joint disease) of knee Fatigue Frequent falls GERD without esophagitis Hypercholesterolemia Lumbar stenosis Meningioma Thoracic spondylosis Surgical History H/O: hysterectomy Hx of tonsillectomy Family History Mother Coronary heart disease Father Prostate cancer malignant neoplasm of prostate Myocardial infarction Denies family history of Ovarian cancer Breast cancer Colorectal cancer Social History Smoking Status: Never smoker Second Hand Exposure: No; Hx Alcohol Use: No Hx Substance Use: No Preferred Language: [place] Furniture Crater Required: No Beliefs That Will Affect Care: None marital status: Current Living Situation: Spouse current occupational status: retired Feels Safe at Home: Yes Safety Concerns: Feels Safe At This Time caffeine: No Dental Care, Regularly: No Physical Activity Frequency: 1-2 Times per Week Physical Activity Frequency Comment: walking/chores Seatbelt Use: always Sunscreen Use: No Assistive Devices: Denture - Upper, Denture - Lower, Glasses, Hearing Aid - Bilateral and Walker Allergies Allergies Allergy/AdvReac Type Severity Reaction Status Date / Time diflunisal Allergy Unknown SWELLING Verified 07/12/21 15:32 Home Meds Home Medications Medication Instructions Recorded Confirmed loteprednol etabonate 0.5 % eye 1 drops OP DAILY ml 06/03/19 07/13/21 drops,suspension polyethylene glycol 3350 17 17 gm PO DAILY PRN gm 12/12/19 07/13/21 gram/dose oral powder (Miralax) vitamins A,C,Q-[id number] 1 tab PO BID 11/12/20 07/13/21 [PreserVision AREDS] acetaminophen 500 mg tablet 1,000 mg PO Q6H PRN 07/13/21 07/13/21 (Tylenol Extra Strength) amlodipine 5 mg tablet 5 mg PO DAILY 07/13/21 07/13/21 aspirin 81 mg tablet,delayed 81 mg PO DAILY 07/13/21 07/13/21 release atenolol 50 mg tablet 50 mg PO DAILY 07/13/21 07/13/21 calcium carbonate 160 mg calcium 0 mg PO DAILY 07/13/21 07/13/21 (400 mg) chewable tablet donepezil 5 mg tablet (Aricept) 5 mg PO HS 07/13/21 07/13/21 ibuprofen-diphenhydramine citrate 1 cap PO HS 07/13/21 07/13/21 200 mg-38 mg tablet (Advil PM) omeprazole 40 mg capsule,delayed 40 mg PO DAILY 07/13/21 07/13/21 release Previous Rx's Medication Instructions Recorded hydrocortisone 2.5 % topical cream 1 applic AR DAILY PRN #30 g 07/22/20 with perineal applicator (Proctosol HC) meclizine 25 mg tablet See Rx Instructions .ROUTE 07/22/20 .COMPLEX #30 tab nitroglycerin 0.4 mg sublingual 0.4 mg SL Q5M PRN #25 tab 11/12/20 tablet isosorbide mononitrate 60 mg 60 mg PO DAILY #90 tab 02/10/21 tablet,extended release 24 hr sertraline 50 mg tablet 25 mg PO DAILY #90 tab 02/10/21 fexofenadine 180 mg tablet 180 mg PO DAILY #30 tab 06/13/21 triamcinolone acetonide 0.1 % 1 applic TOPICAL BID #30 g 06/13/21 topical cream Results & Data (ED) Vital Signs Vital Signs - 24 hr 07/13/21 12:11 07/13/21 12:17 07/13/21 12:25 Temperature 36.6 C Temperature Source Oral Pulse Rate 62 Pulse Rate [Right] 63 Pulse Rhythm Regular Pulse Rhythm [Right] Regular Pulse Strength Normal Pulse Strength [Right] Normal Respiratory Rate 32 H 32 H Respiratory Effort / Characteristics Labored Respiratory Depth Normal Shallow Respiratory Pattern Tachypnea Tachypnea Blood Pressure 194/73 H Blood Pressure [Left Arm] 194/73 H Blood Pressure Mean 113 Blood Pressure Mean [Left Arm] 113 Blood Pressure Position Sitting Blood Pressure Position [Left Arm] Sitting Pulse Oximetry 90 82 L 82 L Oxygen Delivery Method Oxymask Room Air Oxymask Oxygen Flow Rate 6 0 Fraction of Inspired Oxygen Sepsis Recent Fever Within 48 Hours No Sepsis New/Unexplained Change in Mental Status No Sepsis Action Taken by Nursing No Action Required Oxygen Flow Rate - Titration 6 Pulse Oximetry Post Tiitration 82 L 07/13/21 12:30 07/13/21 12:38 07/13/21 12:46 Temperature Temperature Source Pulse Rate Pulse Rate [Right] 61 59 L 58 L Pulse Rhythm Pulse Rhythm [Right] Regular Regular Regular Pulse Strength Pulse Strength [Right] Normal Normal Normal Respiratory Rate 30 H 32 H 32 H Respiratory Effort / Characteristics Labored Labored Labored Respiratory Depth Shallow Shallow Shallow Respiratory Pattern Tachypnea Tachypnea Tachypnea Blood Pressure Blood Pressure [Left Arm] 203/86 H 191/92 H 196/84 H Blood Pressure Mean Blood Pressure Mean [Left Arm] 125 125 121 Blood Pressure Position Blood Pressure Position [Left Arm] Sitting Sitting Sitting Pulse Oximetry 88 L 93 93 Oxygen Delivery Method Oxymask Room Air Oxymask Oxygen Flow Rate 6 8 Fraction of Inspired Oxygen Sepsis Recent Fever Within 48 Hours Sepsis New/Unexplained Change in Mental Status Sepsis Action Taken by Nursing Oxygen Flow Rate - Titration Pulse Oximetry Post Tiitration 07/13/21 13:00 07/13/21 13:16 07/13/21 13:31 Temperature Temperature Source Pulse Rate 58 L 55 L 67 Pulse Rate [Right] Pulse Rhythm Pulse Rhythm [Right] Pulse Strength Pulse Strength [Right] Respiratory Rate 32 H 25 H 24 Respiratory Effort / Characteristics Respiratory Depth Respiratory Pattern Blood Pressure 200/81 H 189/81 H 194/84 H Blood Pressure [Left Arm] Blood Pressure Mean 120 117 120 Blood Pressure Mean [Left Arm] Blood Pressure Position Blood Pressure Position [Left Arm] Pulse Oximetry 93 93 Oxygen Delivery Method Oxymask Oxymask Oxygen Flow Rate 8 8 Fraction of Inspired Oxygen Sepsis Recent Fever Within 48 Hours Sepsis New/Unexplained Change in Mental Status Sepsis Action Taken by Nursing Oxygen Flow Rate - Titration Pulse Oximetry Post Tiitration 07/13/21 13:46 07/13/21 14:11 07/13/21 14:17 Temperature Temperature Source Pulse Rate 59 L 58 L Pulse Rate [Right] Pulse Rhythm Pulse Rhythm [Right] Pulse Strength Pulse Strength [Right] Respiratory Rate 27 H 30 H 28 H Respiratory Effort / Characteristics Non-Labored Spontaneous Respiratory Depth Normal Respiratory Pattern Regular Blood Pressure 198/117 H 198/74 H Blood Pressure [Left Arm] Blood Pressure Mean 144 115 Blood Pressure Mean [Left Arm] Blood Pressure Position Blood Pressure Position [Left Arm] Pulse Oximetry 94 95 Oxygen Delivery Method BiPAP Oxygen Flow Rate Fraction of Inspired Oxygen 60 60 Sepsis Recent Fever Within 48 Hours Sepsis New/Unexplained Change in Mental Status Sepsis Action Taken by Nursing Oxygen Flow Rate - Titration Pulse Oximetry Post Tiitration Home Medications Current Medication List: was personally reviewed by me Laboratory Data Attestation: I reviewed the patient's lab results. Result diagrams: 07/13/21 12:15 07/13/21 12:15 Lab Results 07/13/21 07/13/21 07/13/21 Range/Units 12:15 12:15 12:15 WBC 16.95 H (4.8-10.8) K/uL RBC 3.02 L (4.2-5.4) M/uL Hgb 9.0 L (12.0-16.0) g/dL POC Hgb (12.0-16.0) g/dl Hct 28.1 L (37-47) % POC Hct (37-47) % MCV 93.0 (80-100) fL MCH 29.8 (25-34) pg MCHC 32.0 (32-36) g/dL RDW Std Deviation 45.8 (36.4-46.3) fL RDW Coeff of Gustavo 13.6 (11.5-14.5) % Plt Count 438 H (130-400) K/uL MPV 10.3 (7.4-10.4) fL Immature Gran % (Auto) 0.3 % Neut % (Auto) 88.5 % Lymph % (Auto) 5.5 % [place] % (Auto) 5.4 % Eos % (Auto) 0.2 % Baso % (Auto) 0.1 % Neut # (Auto) 14.99 H (1.4-6.5) K/uL Lymph # (Auto) 0.94 L (1.2-3.4) K/uL [place] # (Auto) 0.92 H (0.11-0.59) K/uL Eos # (Auto) 0.03 (0-0.5) K/uL Baso # (Auto) 0.02 (0-0.2) K/uL Immature Gran # (Auto) 0.05 H (0.00-0.02) K/uL PT 12.5 H (9.0-12.0) Seconds INR 1.3 H (0.9-1.1) APTT 23.2 (21.0-31.0) Seconds PTT Ratio 0.9 VBG pH (7.36-7.41) VBG pCO2 (38-50) mmHg VBG pO2 mmHg VBG HCO3 mmol/L VBG O2 Saturation % VBG Base Excess mEq/L Barometric Pressure mm/Hg POC Sodium (135-144) mmol/L Sodium 129 L (136-145) mmol/L POC Potassium (3.3-5.0) mmol/L Potassium (3.5-5.1) mmol/L POC Chloride (101-112) mmol/L Chloride 95 L (98-107) mmol/L Carbon Dioxide 22 (21-32) mmol/L POC Total CO2 (24-31) mmol/L Anion Gap 12 H (3-11) POC Anion Gap (16-25) mmol/L POC BUN (7-18) mg/dl BUN 38 H (6-23) mg/dl Creatinine 1.08 (0.6-1.2) mg/dl POC Creatinine (0.6-1.3) mg/dl Est Cr Clr Drug Dosing Not Reportable Est GFR ( Amer) 52.7 ml/min Est GFR (Non-Af Amer) 45.5 ml/min BUN/Creatinine Ratio 35.2 H (10-20) Glucose 328 H* (70-99) mg/dl POC Glucose (other) (70-99) mg/dl Calcium 8.7 (8.5-10.1) mg/dl POC Ioniz Calcium Anisa (1.12-1.32) mmol/l Magnesium 2.1 (1.7-2.4) mg/dl Total Bilirubin 0.8 (0.2-1.0) mg/dl AST (13-39) U/L ALT 54 H (7-52) U/L Alkaline Phosphatase 258 H (34-104) U/L Troponin I 0.10 H* (0-0.04) ng/ml Total Protein 7.5 (6.0-8.3) gm/dl Albumin 3.3 L (3.4-5.0) gm/dl Globulin 4.2 H (2.5-4.0) gm/dl Albumin/Globulin Ratio 0.8 L (0.9-2) SARS-CoV-2 (PCR) (Negative) Influenza Type A (PCR) (Neg) Influenza Type B (PCR) (Neg) RSV (RT-PCR) (Neg) 07/13/21 07/13/21 07/13/21 Range/Units 12:19 12:30 12:46 WBC (4.8-10.8) K/uL RBC (4.2-5.4) M/uL Hgb (12.0-16.0) g/dL POC Hgb 9.2 L (12.0-16.0) g/dl Hct (37-47) % POC Hct 27 L (37-47) % MCV (80-100) fL MCH (25-34) pg MCHC (32-36) g/dL RDW Std Deviation (36.4-46.3) fL RDW Coeff of Gustavo (11.5-14.5) % Plt Count (130-400) K/uL MPV (7.4-10.4) fL Immature Gran % (Auto) % Neut % (Auto) % Lymph % (Auto) % [place] % (Auto) % Eos % (Auto) % Baso % (Auto) % Neut # (Auto) (1.4-6.5) K/uL Lymph # (Auto) (1.2-3.4) K/uL [place] # (Auto) (0.11-0.59) K/uL Eos # (Auto) (0-0.5) K/uL Baso # (Auto) (0-0.2) K/uL Immature Gran # (Auto) (0.00-0.02) K/uL PT (9.0-12.0) Seconds INR (0.9-1.1) APTT (21.0-31.0) Seconds PTT Ratio VBG pH 7.35 L (7.36-7.41) VBG pCO2 37 L (38-50) mmHg VBG pO2 36 mmHg VBG HCO3 20 mmol/L VBG O2 Saturation 65.0 % VBG Base Excess -5.1 mEq/L Barometric Pressure 731.6 mm/Hg POC Sodium 129 L (135-144) mmol/L Sodium (136-145) mmol/L POC Potassium 4.6 (3.3-5.0) mmol/L Potassium (3.5-5.1) mmol/L POC Chloride 96 L (101-112) mmol/L Chloride (98-107) mmol/L Carbon Dioxide (21-32) mmol/L POC Total CO2 24 (24-31) mmol/L Anion Gap (3-11) POC Anion Gap 15.0 L (16-25) mmol/L POC BUN 47 H (7-18) mg/dl BUN (6-23) mg/dl Creatinine (0.6-1.2) mg/dl POC Creatinine 1.1 (0.6-1.3) mg/dl Est Cr Clr Drug Dosing Est GFR ( Amer) ml/min Est GFR (Non-Af Amer) ml/min BUN/Creatinine Ratio (10-20) Glucose (70-99) mg/dl POC Glucose (other) 337 H (70-99) mg/dl Calcium (8.5-10.1) mg/dl POC Ioniz Calcium Anisa 1.12 (1.12-1.32) mmol/l Magnesium (1.7-2.4) mg/dl Total Bilirubin (0.2-1.0) mg/dl AST (13-39) U/L ALT (7-52) U/L Alkaline Phosphatase (34-104) U/L Troponin I (0-0.04) ng/ml Total Protein (6.0-8.3) gm/dl Albumin (3.4-5.0) gm/dl Globulin (2.5-4.0) gm/dl Albumin/Globulin Ratio (0.9-2) SARS-CoV-2 (PCR) NEGATIVE (Negative) Influenza Type A (PCR) Negative (Neg) Influenza Type B (PCR) Negative (Neg) RSV (RT-PCR) Negative (Neg) Administered Medications Piperacillin Sod/Tazobactam (Sod 3.375 gm/ Dextrose) 115 mls @ 28.75 mls/hr IV Q8H [place]; Protocol Stop: 07/20/21 17:59 Last Admin: 07/13/21 18:46 Dose: 28.8 mls/hr Documented by: [id number] Insulin Aspart (Insulin Aspart Per Unit) 0 units SC ACHS [place] Stop: 08/12/21 17:25 Last Admin: 07/13/21 18:46 Dose: 3 units Documented by: [id number] Cosigned by: [id number] Discontinued Medications Albuterol (Albuterol 0.083% Nebu Soln 3 Ml Vial) 2.5 mg NEB NOW STA; Protocol Stop: 07/13/21 13:52 Last Admin: 07/13/21 14:15 Dose: 2.5 mg Documented by: [id number] Piperacillin Sod/Tazobactam Sod (Zosyn) 4.5 gm in 120 mls @ 240 mls/hr IV NOW ONE Stop: 07/13/21 12:56 Last Infusion: 07/13/21 13:23 Dose: 0 mls/hr Documented by: [id number] Admin: 07/13/21 12:53 Dose: 240 mls/hr Documented by: [id number] Azithromycin 500 mg/ Dextrose 255 mls @ 127.5 mls/hr IV NOW STA Stop: 07/13/21 15:23 Last Admin: 07/13/21 13:58 Dose: 127.5 mls/hr Documented by: [id number] Insulin Aspart (Insulin Aspart Per Unit) 6 units SC NOW STA Stop: 07/13/21 14:26 Last Admin: 07/13/21 14:49 Dose: 6 units Documented by: [id number] Cosigned by: [id number] Ioversol (Optiray 320 125ml) 120 ml IV ONCE ONE Stop: 07/13/21 12:31 Last Admin: 07/13/21 12:28 Dose: 120 ml Documented by: [id number] Imaging Data Radiologist's Impression: Chest X-Ray 07/13/21 12:10 XR chest 1V portable CLINICAL HISTORY: Stroke Like Symptoms TECHNIQUE: Single frontal radiograph of the chest was obtained. Comparison: Comparison is made to chest one view 03/18/2018 FINDINGS: No lines and tubes are seen. Calcified aortic knob is seen. Multifocal airspace opacities are seen. No evidence of pleural effusion or pneumothorax. IMPRESSION: Multifocal airspace opacities may represent atelectasis, pneumonia, and/or aspiration. ACT 112: Negative or not required by law. Electronically signed by: Andry Kan M.D. 07/13/2021 1:[address] 07/13/21 12:10 CT head/brain wo con, CT angio head w con CLINICAL HISTORY: 89 years-old Female with Stroke Like Symptoms. Acute strokelike symptoms TECHNIQUE: Multiple axial CT images of the head were obtained without contrast. CTA of the head was also obtained following the intravenous administration of 20 mL Optiray 320. 3-D coronal and sagittal MIPS were obtained with course. All measurements were obtained according to NASCET criteria. A dose lowering technique was utilized adhering to the principles of ALARA. COMPARISON: CTA neck of same day, head CT 09/28/2020 FINDINGS: Multifocal pulmonary opacities are noted on the director of scout work localizer images. CT HEAD: No acute intracranial hemorrhage, midline shift, intra-axial mass, hydrocephalus, territorial ischemia or abnormal extra-axial collection. Age- related involutional changes with chronic microvascular ischemic disease. Unchanged 10 mm calcification involving the falx cerebri on image 20 suggestive of a probable meningioma. Cerebral vascular calcifications. Chronic appearing subcentimeter lacunar infarcts of the basal ganglia and left cerebellar hemisphere. The calvarium is intact. Mastoid air cells are clear. 2.1 cm expanded opacified right ethmoid air cell appears unchanged suggestive of a mucocele. Lola bullosa. Unremarkable soft tissues. Prior bilateral lens replacement. CTA: The imaged bilateral internal carotid arteries are patent. 3.5 mm saccular aneurysm is noted arising from the inferomedial aspect of the cavernous segment right internal carotid artery. The middle and anterior cerebral arteries are patent. Multifocal areas of high-grade stenosis are noted throughout the A2 segment of the left anterior cerebral artery. The distal vertebral arteries appear patent. The basilar and posterior cerebral arteries are patent. Mult ifocal stenosis of the left posterior cerebral artery with a short segment focus of high-grade stenosis within the P2 segment on image 102. Cerebral venous sinuses are patent. There is no abnormal intracranial enhancement. IMPRESSION: 1. Chronic intracranial findings without acute intracranial abnormality. 2. 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 3. 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 4. Multifocal stenoses of the left posterior cerebral artery with a short segment area of focal high-grade narrowing within the P2 segment. ACT 112: Negative or not required by law. The above report was generated using voice recognition software. It may contain grammatical, syntax or spelling errors. Electronically signed by: Gabino Yin M.D. 07/13/2021 1:16 PM Head CTA 07/13/21 12:10 CT head/brain wo con, CT angio head w con CLINICAL HISTORY: 89 years-old Female with Stroke Like Symptoms. Acute strokelike symptoms TECHNIQUE: Multiple axial CT images of the head were obtained without contrast. CTA of the head was also obtained following the intravenous administration of 20 mL Optiray 320. 3-D coronal and sagittal MIPS were obtained with course. All measurements were obtained according to NASCET criteria. A dose lowering technique was utilized adhering to the principles of ALARA. COMPARISON: CTA neck of same day, head CT 09/28/2020 FINDINGS: Multifocal pulmonary opacities are noted on the director of scout work localizer images. CT HEAD: No acute intracranial hemorrhage, midline shift, intra-axial mass, hydrocephalus, territorial ischemia or abnormal extra-axial collection. Age- related involutional changes with chronic microvascular ischemic disease. Unchanged 10 mm calcification involving the falx cerebri on image 20 suggestive of a probable meningioma. Cerebral vascular calcifications. Chronic appearing subcentimeter lacunar infarcts of the basal ganglia and left cerebellar hemisphere. The calvarium is intact. Mastoid air cells are clear. 2.1 cm expanded opacified right ethmoid air cell appears unchanged suggestive of a mucocele. Lola bullosa. Unremarkable soft tissues. Prior bilateral lens replacement. CTA: The imaged bilateral internal carotid arteries are patent. 3.5 mm saccular aneurysm is noted arising from the inferomedial aspect of the cavernous segment right internal carotid artery. The middle and anterior cerebral arteries are patent. Multifocal areas of high-grade stenosis are noted throughout the A2 segment of the left anterior cerebral artery. The distal vertebral arteries appear patent. The basilar and posterior cerebral arteries are patent. Multifocal stenosis of the left posterior cerebral artery with a short segment focus of high-grade stenosis within the P2 segment on image 102. Cerebral venous sinuses are patent. There is no abnormal intracranial enhancement. IMPRESSION: 1. Chronic intracranial findings without acute intracranial abnormality. 2. 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 3. 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 4. Multifocal stenoses of the left posterior cerebral artery with a short segment area of focal high-grade narrowing within the P2 segment. ACT 112: Negative or not required by law. The above report was generated using voice recognition software. It may contain grammatical, syntax or spelling errors. Electronically signed by: Gabino Yin M.D. 07/13/2021 1:16 PM Neck CTA 07/13/21 12:10 CT ANGIOGRAPHY OF THE NECK WITH CONTRAST CLINICAL HISTORY: Stroke Like Symptoms. Left-sided weakness. COMPARISON STUDY: No previous studies for comparison. Technique: CT angiography of the carotid and vertebral arteries was obtained using Optiray and 3D reconstruction on an independent workstation. NASCET criteria was utilized. Automated exposure control was utilized for the study. A dose lowering technique was utilized adhering to the principles of ALARA. Findings: Right paratracheal lymphadenopathy is partially imaged on this exam. A right paratracheal lymph node measures at least 2.6 x 1.7 cm. Extensive consolid ation is noted within visualized portions of the right upper lobe. This also partially visualized airspace opacity within the left upper lobe. Trace right pleural fluid is noted. No cervical lymphadenopathy is present. There is no acute cervical spine fracture. There is mild to moderate plaque within the major vessels of the neck without stenosis or dissection. The bilateral common carotid, cervical internal carotid and vertebral arteries are patent. There is a small 3 mm saccular aneurysm arising from the inferior aspect of the right cavernous carotid shown on axial image 339 of 362. There is moderate calcified plaque within the bilateral cavernous carotids. CTA of the head will be reported separately. IMPRESSION: 1. No stenosis or dissection within the major vessels of the neck. 2. Extensive airspace opacities within the right upper lobe and partially visualized left upper lobe airspace opacity. The findings favor multifocal pneumonia, partially imaged on this exam. This can be assessed on follow-up chest CT which has been ordered. 3. Right paratracheal lymphadenopathy, partially imaged on this exam. This may be reactive however a neoplastic process cannot be completely excluded and this should be assessed on follow-up chest CT to ensure resolution. 4. 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 ACT 112: Negative or not required by law. Electronically signed by: Deacon Harrison M.D. 07/13/2021 12:[address] 07/13/21 12:22 CT chest diagnostic wo con CLINICAL HISTORY: low o2 TECHNIQUE: Multidetector row helical CT of the chest was performed. Coronal and sagittal reformations were obtained. Automated dose lowering techniques and/or adjustment according to patient size were utilized for this exam. Comparison: Comparison is made to chest 2 views 03/18/2018 FINDINGS: Lungs and pleura: There is a small right and trace left pleural effusion. Multifocal airspace opacities are seen, right greater than left. Heart and pericardium: There is cardiomegaly without evidence of pericardial effusion. Vessels: Severe atherosclerotic changes in the aorta and coronary arteries. Mediastinum and kristi: Multiple enlarged mediastinal lymph nodes are seen measuring up to 17 mm in the right lower paratracheal station. Chest wall and lower neck: Unremarkable. Abdomen: Unremarkable. Bones: Degenerative changes in the thoracic spine. Compression deformity of the T11-T12 are seen. IMPRESSION: Multiple airspace disease and a central lymphadenopathy compatible with pneumonia with or without superimposed aspiration. ACT 112: Negative or not required by law. Electronically signed by: Andry Kan M.D. 07/13/2021 1:12 PM Abdomen/Pelvis CT 07/13/21 13:47 CT abd pelvis wo con CLINICAL HISTORY: fall TECHNIQUE: Helical axial images of the abdomen and pelvis were obtained. Automated dose lowering techniques and/or adjustment according to patient size were utilized for this exam. This exam was performed without intravenous contrast. COMPARISON: Comparison is made to CT abdomen pelvis 07/30/2019 FINDINGS: Exam is limited by patient motion. Lower chest: There is a right pleural effusion with bilateral consolidative changes. Liver: Unremarkable. No focal lesions are seen. Gallbladder and biliary tree: No calcified gallstones. Normal caliber wall. No intra- or extrahepatic biliary ductal dilation. Pancreas: Unremarkable, no focal lesions. Spleen: Unremarkable. Adrenals: Unremarkable. Kidneys and ureters: Unremarkable. Bladder: Unremarkable. Reproductive organs: Unremarkable. Bowel: Diverticulosis is seen without evidence of diverticulitis. Lipomatous lesion is seen in the ileum. Lymph nodes Retroperitoneal: Unremarkable. Mesenteric: Unremarkable. Pelvic: Unremarkable. Peritoneum: Poorly evaluated due to patient motion, there is a hyperdense peripheral halo in the superior anterior peritoneum which may reflect an omental infarct, likely remote. Vessels: Atherosclerotic calcifications are seen. Abdominal wall: Unremarkable. Bones: There is grade 2 anterolisthesis of L5-S1. Anterior wedge deformity is seen at the T11 vertebral body, unchanged from prior exam. IMPRESSION: 1. No acute abnormality and in particular no evidence of acute fracture. 2. Additional findings as well. ACT 112: Negative or not required by law. Electronically signed by: Andry Kan M.D. 07/13/2021 4:[address] 07/13/21 13:52 CT hip RT wo con CLINICAL HISTORY: fall TECHNIQUE: Multidetector row helical CT of the right knee was performed without intravenous contrast. Coronal and sagittal reformations were obtained. Automated dose lowering techniques and/or adjustment according to patient size were utilized for this examination. Comparison: None available at the time of this dictation. FINDINGS: The osseous structures are without fracture or dislocation. No joint effusion is seen. The joint spaces are maintained. Please see CT abdomen pelvis for intraperitoneal findings. The soft tissues are unremarkable apart from minimal stranding in the lateral soft tissues of the hip. IMPRESSION: No evidence of acute fracture or dislocation. Lateral subcutaneous tissue str anding may represent bruising. ACT 112: Negative or not required by law. Electronically signed by: Andry Kan M.D. 07/13/2021 4:28 PM Discharge Plan Visit Data Chief Complaint: Stroke/CVA Symptoms Stated Complaint: STROKE SX ,CONFUSION ED Provider: Sonny Lucas Discharge Problem: Ischemic cerebrovascular accident (CVA), Pneumonia, Hypoxia, Anemia Patient Disposition: Admitted As Inpatient Discharge Instructions Interventions: ED Discharge Assessment Last Done: 07/13/21 15:27 Discharge Problem: Pneumonia Qualifiers: Pneumonia type: due to unspecified organism Laterality: right Lung location: upper lobe of lung Qualified Code(s): J18.9 - Pneumonia, unspecified organism Anemia Qualifiers: Anemia type: unspecified type Qualified Code(s): D64.9 - Anemia, unspecified
[2021-07-13 12:57] LABS: INR 1.3 (0.9-1.1); Partial Thromboplastin Ratio 0.9; Partial Thromboplastin Time 23.2 Seconds (21.0-31.0); Prothrombin Time 12.5 Seconds (9.0-12.0)
--- NOTE | 2021-07-13 12:57 | CT Scan Report ---
CT ANGIOGRAPHY OF THE NECK WITH CONTRAST CLINICAL HISTORY: Stroke Like Symptoms. Left-sided weakness. COMPARISON STUDY: No previous studies for comparison. Technique: CT angiography of the carotid and vertebral arteries was obtained using Optiray and 3D rec onstruction on an independent workstation. NASCET criteria was utilized. Automated exposure control was utilized for the study. A dose lowering technique was utilized adhering to the principles of ALA RA. Findings: Right paratracheal lymphadenopathy is partially imaged on this exam. A right paratracheal l ymph node measures at least 2.6 x 1.7 cm. Extensive consolidation is noted within visualized portions of the right upper lobe. This also partially visualized airspace opacity within the left upper lobe. Trace right pleural fluid is noted. No cervical lymphadenopathy is present. There is no acute cervic al spine fracture. There is mild to moderate plaque within the major vessels of the neck without sten osis or dissection. The bilateral common carotid, cervical internal carotid and vertebral arteries ar e patent. There is a small 3 mm saccular aneurysm arising from the inferior aspect of the right homero nous carotid shown on axial image 339 of 362. There is moderate calcified plaque within the bilateral cavernous carotids. CTA of the head will be reported separately. IMPRESSION: 1. No stenosis or dissection within the major vessels of the neck. 2. Extensive airspace opacities within the right upper lobe and partially visualized left upper lobe airspace opacity. The findings favor multifocal pneumonia, partially imaged on this exam. This can be assessed on follow-up chest CT which has been ordered. 3. Right paratracheal lymphadenopathy, partially imaged on this exam. This may be reactive however a neoplastic process cannot be completely excluded and this should be assessed on follow-up chest CT to ensure resolution. 4. 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 ACT 112: Negative or not required by law. Electronically signed by: Deacon Harrison M.D. 07/13/2021 12:56 PM
[2021-07-13 13:04] LABS: Base Excess VBG -5.1 mEq/L; pH VBG 7.35 (7.36-7.41)
--- NOTE | 2021-07-13 13:13 | CT Scan Report ---
CT chest diagnostic wo con CLINICAL HISTORY: low o2 TECHNIQUE: Multidetector row helical CT of the chest was performed. Coronal and sagittal reformations were obtained. Automated dose lowering techniques and/or adjustment according to patient size were u tilized for this exam. Comparison: Comparison is made to chest 2 views 03/18/2018 FINDINGS: Lungs and pleura: There is a small right and trace left pleural effusion. Multifocal airspace opaciti es are seen, right greater than left. Heart and pericardium: There is cardiomegaly without evidence of pericardial effusion. Vessels: Severe atherosclerotic changes in the aorta and coronary arteries. Mediastinum and kristi: Multiple enlarged mediastinal lymph nodes are seen measuring up to 17 mm in the right lower paratracheal station. Chest wall and lower neck: Unremarkable. Abdomen: Unremarkable. Bones: Degenerative changes in the thoracic spine. Compression deformity of the T11-T12 are seen. IMPRESSION: Multiple airspace disease and a central lymphadenopathy compatible with pneumonia with or without sup erimposed aspiration. ACT 112: Negative or not required by law. Electronically signed by: Andry Kan M.D. 07/13/2021 1:12 PM
--- NOTE | 2021-07-13 13:17 | XRay Report ---
XR chest 1V portable CLINICAL HISTORY: Stroke Like Symptoms TECHNIQUE: Single frontal radiograph of the chest was obtained. Comparison: Comparison is made to chest one view 03/18/2018 FINDINGS: No lines and tubes are seen. Calcified aortic knob is seen. Multifocal airspace opacities are seen. N o evidence of pleural effusion or pneumothorax. IMPRESSION: Multifocal airspace opacities may represent atelectasis, pneumonia, and/or aspiration. ACT 112: Negative or not required by law. Electronically signed by: Andry Kan M.D. 07/13/2021 1:15 PM
--- NOTE | 2021-07-13 13:17 | CT Scan Report ---
CT head/brain wo con, CT angio head w con CLINICAL HISTORY: 89 years-old Female with Stroke Like Symptoms. Acute strokelike symptoms TECHNIQUE: Multiple axial CT images of the head were obtained without contrast. CTA of the head was a lso obtained following the intravenous administration of 20 mL Optiray 320. 3-D coronal and sagittal MIPS were obtained with course. All measurements were obtained according to NASCET criteria. A dose l owering technique was utilized adhering to the principles of ALARA. COMPARISON: CTA neck of same day, head CT 09/28/2020 FINDINGS: Multifocal pulmonary opacities are noted on the managing broker localizer images. CT HEAD: No acute intracranial hemorrhage, midline shift, intra-axial mass, hydrocephalus, territorial ischemi a or abnormal extra-axial collection. Age-related involutional changes with chronic microvascular isc hemic disease. Unchanged 10 mm calcification involving the falx cerebri on image 20 suggestive of a p robable meningioma. Cerebral vascular calcifications. Chronic appearing subcentimeter lacunar infarct s of the basal ganglia and left cerebellar hemisphere. The calvarium is intact. Mastoid air cells are clear. 2.1 cm expanded opacified right ethmoid air cell appears unchanged suggestive of a mucocele. Lola bullosa. Unremarkable soft tissues. Prior bilateral lens replacement. CTA: The imaged bilateral internal carotid arteries are patent. 3.5 mm saccular aneurysm is noted arising from the inferomedial aspect of the cavernous segment right internal carotid artery. The middle and a nterior cerebral arteries are patent. Multifocal areas of high-grade stenosis are noted throughout th e A2 segment of the left anterior cerebral artery. The distal vertebral arteries appear patent. The b asilar and posterior cerebral arteries are patent. Multifocal stenosis of the left posterior cerebral artery with a short segment focus of high-grade stenosis within the P2 segment on image 102. Cerebra l venous sinuses are patent. There is no abnormal intracranial enhancement. IMPRESSION: 1. Chronic intracranial findings without acute intracranial abnormality. 2. 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 3. 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 4. 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 ACT 112: Negative or not required by law. The above report was generated using voice recognition software. It may contain grammatical, syntax o r spelling errors. Electronically signed by: Gabino Yin M.D. 07/13/2021 1:16 PM
[2021-07-13 13:23] LABS: Influenza A virus by PCR Negative (Neg); Influenza B virus by PCR Negative (Neg); RSV by PCR Negative (Neg); SARS CoV2 RNA(COVID-19) InHosp NEGATIVE (Negative)
[2021-07-13] MEDS ORDERED: AZITHROMYCIN 500 MG in DEXTROSE 5% 250 ML IV STA (13:24)
[2021-07-13 13:36] LABS: Alanine Aminotransferase 54 U/L (7-52); Albumin Globulin Ratio 0.8 (0.9-2); Albumin Level 3.3 gm/dl (3.4-5.0); Alkaline Phosphatase 258 U/L (34-104); Anion Gap 12 (3-11); BUN Creatinine Ratio 35.2 (10-20); Bilirubin,Total 0.8 mg/dl (0.2-1.0); Blood Urea Nitrogen 38 mg/dl (6-23); Calcium 8.7 mg/dl (8.5-10.1); Carbon Dioxide 22 mmol/L (21-32); Chloride 95 mmol/L (98-107); Est GFR (African American) 52.7 ml/min; Est GFR (Non-African American) 45.5 ml/min; Globulin 4.2 gm/dl (2.5-4.0); Glucose 328 mg/dl (70-99); Magnesium 2.1 mg/dl (1.7-2.4); Sodium 129 mmol/L (136-145); Total Protein 7.5 gm/dl (6.0-8.3)
[2021-07-13] MEDS ORDERED: ALBUTEROL 0.083% NEBU SOLN 3 ML VIAL NEB STA (13:51)
--- NOTE | 2021-07-13 13:51 | Electrocardiogram Report ---
Test Reason : Blood Pressure : / mmHG Vent. Rate : 063 BPM Atrial Rate : 063 BPM P-R Int : 154 ms QRS Dur : 082 ms QT Int : 414 ms P-R-T Axes : 083 024 -51 degrees QTc Int : 423 ms Normal sinus rhythm Poor R wave progression, consider anterior TX vs. lead placement vs. LVH Minor T-wave inversion in Anterior leads Abnormal ECG When compared with ECG of 11-MAY-2017 07:57, T wave inversion now evident in Anterior leads Confirmed by Vicente Antunez ([id number]) on 07/13/2021 1:51:02 PM Referred By: Confirmed By:Vicente Antunez
[2021-07-13] MEDS ORDERED: INSULIN ASPART PER UNIT SC STA (14:25)
--- NOTE | 2021-07-13 14:30 | History & Physical Report ---
Date of Service July 13, 2021 Assessment & Plan (1) Encephalopathy: Plan: Encephalopathy with rule out CVA - Metabolic likely secondary to hypoxemia and pneumonia complicated by her vascular dementia - Will obtain MRI of the brain- pending - Control glucose - CT of the head with high grade stenoses of the BERTA A2 and P2 segments - UA negative- blood and urine culture pending - Continue oxygenation support (2) Pneumonia: Plan: Multilobar aspiration/bacterial pneumonia with hypoxia - Patient with opacifications bilaterally, elevated WBC, hypoxia - Awaiting sputum culture - Zosyn IV q6 and Azithromycin for atypical - Albuterol scheduled for 24 hours - cough assist - with flutter valve QID, Chest PT - Blood cultures pending (3) Hypoxia: Plan: Hypoxia with respiratory failure requiring CPAP/BIPAP - As above (4) Hyperglycemia due to type 2 diabetes mellitus: Plan: BG 382 on admission - No gap, normal HCO3 - 6 units aspart subq now - sliding scale without carb ratio until nutrition intake stabilized - may need basal (5) GERD without esophagitis: Plan: Chronic- HGB decrease to 9 with bilateral upper quad tenderness - Protonix 40mg IV BID - CT abdomen pending (6) Hypertension: Plan: Poorly controlled- at this time do not feel this is contributing to her encephalopathy - Labetalol 10mg IV PRN for SBP >180 or DBP >100- if CVA confirmed will allow permissive HTN (7) Elevated troponin: Plan: Likely type II demand ischemia from hypoxia - no dynamic ECG changes - Trend Troponin (8) DJD (degenerative joint disease) of knee: Plan: Patient takes Ibuprofen at home with advil qpm on most days - with drop in her HGB will hold this as well as other NSAIDs (9) Age-related physical debility: Plan: Decrease in overall memory and function - PT/OT consult placed - may need rehab (10) Anxiety: Plan: Chronic no acute need (11) CAD (coronary artery disease): Plan: Documented as such, but unable to find vessels- she has not had a cardiac catheterization that is in our system - Continue ASA - Continue Isosorbide - PRN NTG (12) Meningioma: Plan: Found incidentally on CT/MRI of the head - follows with neurology [facility] for routine follow up History of Present Illness Primary Care Provider: GET Mackey 89 YOF with past medical history of: CAD, HTN, HLD, Anxiety, GERD, DM II, Meningioma, Dementia, PAF, hiatal hernia. Patient comes to the EMD today for concerns of stroke. Symptoms were noted to start approx 4-5 days ago where she was noted to be having weakness of her right leg and has also had 3-4 falls during this time. They also noted during that time that she became more lethargic with decrease in eating and communicating. She reportedly fell on her right side and stomach/chest. In the EMD she was not stroke alerted secondary to her last known well. She had routine CT of head, CTA of neck, CT of chest, and routine labs performed to include Troponin I. Her CT scan of her head and neck was negative for actue large vessel stroke, bleed, or mass. Her CT scan of her chest revealed bilateral opacities, lymphadenopathy and tracheomalacia. She was noted to be hypoxic as well. She was placed on oxymask with some improvement and was started on Zosyn. The hospitalist team was consulted for admission. Patient is arousable and follows commands but does not voice much, she is tachypneic, and I did review her imaging with her son and daughter at the bedside- patient has bilateral pneumonia which likely has a component to aspiration to it. We reviewed possible intubation and mechanical ventilation with her history and tracheal malacia that weaning from the ventilator will likely not be successful as well as her other comorbidities. We elected for conservative treatment of her pulmonary disease with CPAP/BiPAP continue Zosyn and Azithromycin. Patient also with decrease in her HGB level with abdominal pain and discomfort. Her fecal occult was negative in the EMD, she is also noted to have a bruise to her right hip from her previous falls at home. CT of the abdomen and pelvis was ordered by EMD physician. Will start her on Protonix IV BID. She is also noted to be hyperglycemia on her labs without evidence of DKA. She stopped her Metformin years ago and does not appear to be on any therapy at home. Overall this is a acutely ill female with likely aspiration and bacterial pneumonia with high likley belle of decompensation. As above disc ussed with family and will continue with conservative care, she is DNR/DNI after confirmation with their siblings. Will continue to treat and support her. We will need to obtain MRI to rule out CVA after evaluating her abdomen/pelvis/hip and pulmonary status. Patient COVID test on admission is: NEGATIVE Allergies Allergy/AdvReac Type Severity Reaction Status Date / Time diflunisal Allergy Unknown SWELLING Verified 07/12/21 15:32 Home Medications Medication Instructions Recorded Confirmed Type loteprednol etabonate 0.5 % eye 1 drops OP DAILY ml 06/03/19 07/13/21 History drops,suspension polyethylene glycol 3350 17 17 gm PO DAILY PRN gm 12/12/19 07/13/21 History gram/dose oral powder (Miralax) hydrocortisone 2.5 % topical cream 1 applic MI DAILY PRN #30 g 07/22/20 07/13/21 Rx with perineal applicator (Proctosol HC) meclizine 25 mg tablet See Rx Instructions .ROUTE 07/22/20 07/13/21 Rx .COMPLEX #30 tab nitroglycerin 0.4 mg sublingual 0.4 mg SL Q5M PRN #25 tab 11/12/20 07/13/21 Rx tablet vitamins A,C,J-grbn-pltilo 1 tab PO BID 11/12/20 07/13/21 History [PreserVision AREDS] isosorbide mononitrate 60 mg 60 mg PO DAILY #90 tab 02/10/21 07/13/21 Rx tablet,extended release 24 hr sertraline 50 mg tablet 25 mg PO DAILY #90 tab 02/10/21 07/13/21 Rx fexofenadine 180 mg tablet 180 mg PO DAILY #30 tab 06/13/21 07/13/21 Rx triamcinolone acetonide 0.1 % 1 applic TOPICAL BID #30 g 06/13/21 07/13/21 Rx topical cream acetaminophen 500 mg tablet 1,000 mg PO Q6H PRN 07/13/21 07/13/21 History (Tylenol Extra Strength) amlodipine 5 mg tablet 5 mg PO DAILY 07/13/21 07/13/21 History aspirin 81 mg tablet,delayed 81 mg PO DAILY 07/13/21 07/13/21 History release atenolol 50 mg tablet 50 mg PO DAILY 07/13/21 07/13/21 History calcium carbonate 160 mg calcium 0 mg PO DAILY 07/13/21 07/13/21 History (400 mg) chewable tablet donepezil 5 mg tablet (Aricept) 5 mg PO HS 07/13/21 07/13/21 History ibuprofen-diphenhydramine citrate 1 cap PO HS 07/13/21 07/13/21 History 200 mg-38 mg tablet (Advil PM) omeprazole 40 mg capsule,delayed 40 mg PO DAILY 07/13/21 07/13/21 History release Past Med/Surg History Medical History Back pain Carpal tunnel syndrome on both sides Cognitive changes Diabetes mellitus DJD (degenerative joint disease) of knee Fatigue Frequent falls GERD without esophagitis Hypercholesterolemia Lumbar stenosis Meningioma Thoracic spondylosis Surgical History H/O: hysterectomy Hx of tonsillectomy Family History Mother Coronary heart disease Father Prostate cancer malignant neoplasm of prostate Myocardial infarction Denies family history of Ovarian cancer Breast cancer Colorectal cancer Social History Smoking Status: Never smoker Second Hand Exposure: No; Hx Alcohol Use: No Hx Substance Use: No Preferred Language: Welsh Paper Reeler Required: No Beliefs That Will Affect Care: None marital status: Current Living Situation: Spouse current occupational status: retired Feels Safe at Home: Yes Safety Concerns: Feels Safe At This Time caffeine: No Dental Care, Regularly: No Physical Activity Frequency: 1-2 Times per Week Physical Activity Frequency Comment: walking/chores Seatbelt Use: always Sunscreen Use: No Assistive Devices: Denture - Upper, Denture - Lower, Glasses, Hearing Aid - Bilateral and Walker Review of Systems Review of Systems: REVIEW OF SYSTEMS: obtained from family Constitutional: No fever, sweats or chills Eyes: No diplopia, no worsening or blurred vision ENT: (+) Difficulty in hearing, no trouble swallowing Respiratory: (+) cough, sputum, dyspnea at rest or on exertion Cardiovascular: No chest pain, tightness or palpitations Abdomen: N(+) pain, no nausea, vomiting, diarrhea or constipation Musculoskeletal: (+) knee joint joint pain Neurologic: (+) weakness, numbness/tingling, or balance problems Psychiatric: (+) anxiety Skin: No rash or itch Physical Exam Physical Exam: PHYSICAL EXAM: General: awake, follows simple commands, does talk to her daughter Head: Normocephalic, atraumatic ENT: PERRLA, mucous membranes dry with poor oral care and dried food on tongue Neuro: AAO x 1, speech difficult to understand but appropriate, strength intact bilaterally 5/5 did assist with rolling over, localizes and follows commands Chest: equal rise and fall of the chest, no accessory muscle use, no heaves or thrills, inspiratory wheeze upper airway with scattered rhonci throughout. Cardiac: Regular rate and rhythm, telemetry reviewed, skin warm dry, cap refill <3 seconds, peripheral pulses +2 no JVD, no murmur, trace lower extremity edema GI: NABS x 4 quadrants, soft, nontender to palpation, no rebound, guarding or tenderness : Lees placed Extremities: brusie to right hip, and abdomen, Skin: no rash or erythema Results & Data Results & Data ([facility]) Vital Signs (Past 12 Hours) Vital Signs Temp Pulse Pulse Resp BP BP Pulse Ox 07/13/21 14:17 58 L 28 H 95 07/13/21 14:11 30 H 198/74 H 94 07/13/21 13:46 59 L 27 H 198/117 H 07/13/21 13:31 67 24 194/84 H 07/13/21 13:16 55 L 25 H 189/81 H 93 07/13/21 13:00 58 L 32 H 200/81 H 93 07/13/21 12:46 58 L 32 H 196/84 H 93 07/13/21 12:38 59 L 32 H 191/92 H 93 07/13/21 12:30 61 30 H 203/86 H 88 L 07/13/21 12:25 82 L 07/13/21 12:17 36.6 C 62 32 H 194/73 H 82 L 07/13/21 12:11 63 32 H 194/73 H 90 Laboratory Results Abnormal Labs 07/13/21 07/13/21 07/13/21 12:15 12:15 12:15 WBC 16.95 H RBC 3.02 L Hgb 9.0 L POC Hgb Hct 28.1 L POC Hct Plt Count 438 H Neut # (Auto) 14.99 H Lymph # (Auto) 0.94 L Andrews # (Auto) 0.92 H Immature Gran # (Auto) 0.05 H PT 12.5 H INR 1.3 H VBG pH VBG pCO2 POC Sodium Sodium 129 L POC Chloride Chloride 95 L Anion Gap 12 H POC Anion Gap POC BUN BUN 38 H BUN/Creatinine Ratio 35.2 H Glucose 328 H* POC Glucose (other) ALT 54 H Alkaline Phosphatase 258 H Troponin I 0.10 H* Albumin 3.3 L Globulin 4.2 H Albumin/Globulin Ratio 0.8 L 07/13/21 07/13/21 12:19 12:46 WBC RBC Hgb POC Hgb 9.2 L Hct POC Hct 27 L Plt Count Neut # (Auto) Lymph # (Auto) Andrews # (Auto) Immature Gran # (Auto) PT INR VBG pH 7.35 L VBG pCO2 37 L POC Sodium 129 L Sodium POC Chloride 96 L Chloride Anion Gap POC Anion Gap 15.0 L POC BUN 47 H BUN BUN/Creatinine Ratio Glucose POC Glucose (other) 337 H ALT Alkaline Phosphatase Troponin I Albumin Globulin Albumin/Globulin Ratio Diagnostic Findings Chest X-Ray 07/13/21 12:10 XR chest 1V portable CLINICAL HISTORY: Stroke Like Symptoms TECHNIQUE: Single frontal radiograph of the chest was obtained. Comparison: Comparison is made to chest one view 03/18/2018 FINDINGS: No lines and tubes are seen. Calcified aortic knob is seen. Multifocal airspace opacities are seen. No evidence of pleural effusion or pneumothorax. IMPRESSION: Multifocal airspace opacities may represent atelectasis, pneumonia, and/or aspiration. ACT 112: Negative or not required by law. Electronically signed by: Andry Kan M.D. 07/13/2021 1:[address] 07/13/21 12:10 CT head/brain wo con, CT angio head w con CLINICAL HISTORY: 89 years-old Female with Stroke Like Symptoms. Acute strokelike symptoms TECHNIQUE: Multiple axial CT images of the head were obtained without contrast. CTA of the head was also obtained following the intravenous administration of 20 mL Optiray 320. 3-D coronal and sagittal MIPS were obtained with course. All measurements were obtained according to NASCET criteria. A dose lowering technique was utilized adhering to the principles of ALARA. 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 CT HEAD: No acute intracranial hemorrhage, midline shift, intra-axial mass, hydrocephalus, territorial ischemia or abnormal extra-axial collection. Age- related involutional changes with chronic microvascular ischemic disease. Unchanged 10 mm calcification involving the falx cerebri on image 20 suggestive of a probable meningioma. Cerebral vascular calcifications. Chronic appearing subcentimeter lacunar infarcts of the basal ganglia and left cerebellar hemisphere. The calvarium is intact. Mastoid air cells are clear. 2.1 cm expanded opacified right ethmoid air cell appears unchanged suggestive of a muco marguerite. Lola bullosa. Unremarkable soft tissues. Prior bilateral lens replacement. CTA: The imaged bilateral internal carotid arteries are patent. 3.5 mm saccular aneurysm is noted arising from the inferomedial aspect of the cavernous segment right internal carotid artery. The middle and anterior cerebral arteries are patent. Multifocal areas of high-grade stenosis are noted throughout the A2 s egment of the left anterior cerebral artery. The distal vertebral arteries appear patent. The basilar and posterior cerebral arteries are patent. Multifocal stenosis of the left posterior cerebral artery with a short segment focus of high-grade stenosis within the P2 segment on image 102. Cerebral venous sinuses are patent. There is no abnormal intracranial enhancement. IMPRESSION: 1. Chronic intracranial findings without acute intracranial abnormality. 2. 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 3. 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 4. Multifocal stenoses of the left posterior cerebral artery with a short segment area of focal high-grade narrowing within the P2 segment. ACT 112: Negative or not required by law. The above report was generated using voice recognition software. It may contain grammatical, syntax or spelling errors. Electronically signed by: Gabino Yin M.D. 07/13/2021 1:16 PM Head CTA 07/13/21 12:10 CT head/brain wo con, CT angio head w con CLINICAL HISTORY: 89 years-old Female with Stroke Like Symptoms. Acute strokelike symptoms TECHNIQUE: Multiple axial CT images of the head were obtained without contrast. CTA of the head was also obtained following the intravenous administration of 20 mL Optiray 320. 3-D coronal and sagittal MIPS were obtained with course. All measurements were obtained according to NASCET criteria. A dose lowering technique was utilized adhering to the principles of ALARA. 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 CT HEAD: No acute intracranial hemorrhage, midline shift, intra-axial mass, hydrocepha yan, territorial ischemia or abnormal extra-axial collection. Age-related involutional changes with chronic microvascular ischemic disease. Unchanged 10 mm calcification involving the falx cerebri on image 20 suggestive of a probable meningioma. Cerebral vascular calcifications. Chronic appearing subcentimeter lacunar infarcts of the basal ganglia and left cerebellar hemisphere. The calvarium is intact. Mastoid air cells are clear. 2.1 cm expanded opacified right ethmoid air cell appears unchanged suggestive of a mucocele. Lola bullosa. Unremarkable soft tissues. Prior bilateral lens replacement. CTA: The imaged bilateral internal carotid arteries are patent. 3.5 mm saccular aneurysm is noted arising from the inferomedial aspect of the cavernous segment right internal carotid artery. The middle and anterior cerebral arteries are patent. Multifocal areas of high-grade stenosis are noted throughout the A2 segment of the left anterior cerebral artery. The distal vertebral arteries ap pear patent. The basilar and posterior cerebral arteries are patent. Multifocal stenosis of the left posterior cerebral artery with a short segment focus of high-grade stenosis within the P2 segment on image 102. Cerebral venous sinuses are patent. There is no abnormal intracranial enhancement. IMPRESSION: 1. Chronic intracranial findings without acute intracranial abnormality. 2. 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 3. 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 4. Multifocal stenoses of the left posterior cerebral artery with a short segment area of focal high-grade narrowing within the P2 segment. ACT 112: Negative or not required by law. The above report was generated using voice recognition software. It may contain grammatical, syntax or spelling errors. Electronically signed by: Gabino Yin M.D. 07/13/2021 1:16 PM Neck CTA 07/13/21 12:10 CT ANGIOGRAPHY OF THE NECK WITH CONTRAST CLINICAL HISTORY: Stroke Like Symptoms. Left-sided weakness. COMPARISON STUDY: No previous studies for comparison. Technique: CT angiography of the carotid and vertebral arteries was obtained using Optiray and 3D reconstruction on an independent workstation. NASCET criteria was utilized. Automated exposure control was utilized for the study. A dose lowering technique was utilized adhering to the principles of ALARA. Findings: Right paratracheal lymphadenopathy is partially imaged on this exam. A right paratracheal lymph node measures at least 2.6 x 1.7 cm. Extensive consolidation is noted within visualized portions of the right upper lobe. This also partially visualized airspace opacity within the left upper lobe. Trace right pleural fluid is noted. No cervical lymphadenopathy is present. There is no acute cervical spine fracture. There is mild to moderate plaque within the major vessels of the neck without stenosis or dissection. The bilateral common carotid, cervical internal carotid and vertebral arteries are patent. There is a small 3 mm saccular aneurysm arising from the inferior aspect of the right cavernous carotid shown on axial image 339 of 362. There is moderate calcified plaque within the bilateral cavernous carotids. CTA of the head will be reported separately. IMPRESSION: 1. No stenosis or dissection within the major vessels of the neck. 2. Extensive airspace opacities within the right upper lobe and partially visualized left upper lobe airspace opacity. The findings favor multifocal pneumonia, partially imaged on this exam. This can be assessed on follow-up chest CT which has been ordered. 3. Right paratracheal lymphadenopathy, partially imaged on this exam. This may be reactive however a neoplastic process cannot be completely excluded and this should be assessed on follow-up chest CT to ensure resolution. 4. 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 ACT 112: Negative or not required by law. Electronically signed by: Deacon Harrison M.D. 07/13/2021 12:[address] 07/13/21 12:22 CT chest diagnostic wo con CLINICAL HISTORY: low o2 TECHNIQUE: Multidetector row helical CT of the chest was performed. Coronal and sagittal reformations were obtained. Automated dose lowering techniques and/or adjustment according to patient size were utilized for this exam. Comparison: Comparison is made to chest 2 views 03/18/2018 FINDINGS: Lungs and pleura: There is a small right and trace left pleural effusion. Multifocal airspace opacities are seen, right greater than left. Heart and pericardium: There is cardiomegaly without evidence of pericardial effusion. Vessels: Severe atherosclerotic changes in the aorta and coronary arteries. Mediastinum and kristi: Multiple enlarged mediastinal lymph nodes are seen measuring up to 17 mm in the right lower paratracheal station. Chest wall and lower neck: Unremarkable. Abdomen: Unremarkable. Bones: Degenerative changes in the thoracic spine. Compression deformity of the T11-T12 are seen. IMPRESSION: Multiple airspace disease and a central lymphadenopathy compatible with pneumonia with or without superimposed aspiration. ACT 112: Negative or not required by law. Electronically signed by: Andry Kan M.D. 07/13/2021 1:12 PM Abdomen/Pelvis CT 07/13/21 13:47 CT abd pelvis wo con CLINICAL HISTORY: fall TECHNIQUE: Helical axial images of the abdomen and pelvis were obtained. Automated dose lowering techniques and/or adjustment according to patient size were utilized for this exam. This exam was performed without intravenous contrast. COMPARISON: Comparison is made to CT abdomen pelvis 07/30/2019 FINDINGS: Exam is limited by patient motion. Lower chest: There is a right pleural effusion with bilateral consolidative changes. Liver: Unremarkable. No focal lesions are seen. Gallbladder and biliary tree: No calcified gallstones. Normal caliber wall. No intra- or extrahepatic biliary ductal dilation. Pancreas: Unremarkable, no focal lesions. Spleen: Unremarkable. Adrenals: Unremarkable. Kidneys and ureters: Unremarkable. Bladder: Unremarkable. Reproductive organs: Unremarkable. Bowel: Diverticulosis is seen without evidence of diverticulitis. Lipomatous lesion is seen in the ileum. Lymph nodes Retroperitoneal: Unremarkable. Mesenteric: Unremarkable. Pelvic: Unremarkable. Peritoneum: Poorly evaluated due to patient motion, there is a hyperdense p eripheral halo in the superior anterior peritoneum which may reflect an omental infarct, likely remote. Vessels: Atherosclerotic calcifications are seen. Abdominal wall: Unremarkable. Bones: There is grade 2 anterolisthesis of L5-S1. Anterior wedge deformity is seen at the T11 vertebral body, unchanged from prior exam. IMPRESSION: 1. No acute abnormality and in particular no evidence of acute fracture. 2. Additional findings as well. ACT 112: Negative or not required by law. Electronically signed by: Andry Kan M.D. 07/13/2021 4:[address] 07/13/21 13:52 CT hip RT wo con CLINICAL HISTORY: fall TECHNIQUE: Multidetector row helical CT of the right knee was performed without intravenous contrast. Coronal and sagittal reformations were obtained. Automated dose lowering techniques and/or adjustment according to patient size were utilized for this examination. Comparison: None available at the time of this dictation. FINDINGS: The osseous structures are without fracture or dislocation. No joint effusion is seen. The joint spaces are maintained. Please see CT abdomen pelvis for intraperitoneal findings. The soft tissues are unremarkable apart from minimal stranding in the lateral soft tissues of the hip. IMPRESSION: No evidence of acute fracture or dislocation. Lateral subcutaneous tissue stranding may represent bruising. ACT 112: Negative or not required by law. Electronically signed by: Andry Kan M.D. 07/13/2021 4:28 PM Medications Administered Azithromycin 500 mg/ Dextrose 255 mls @ 127.5 mls/hr IV NOW STA Stop: 07/13/21 15:23 Last Admin: 07/13/21 13:58 Dose: 127.5 mls/hr Documented by: [id number] Discontinued Medications Albuterol (Albuterol 0.083% Nebu Soln 3 Ml Vial) 2.5 mg NEB NOW STA; Protocol Stop: 07/13/21 13:52 Last Admin: 07/13/21 14:15 Dose: 2.5 mg Documented by: [id number] Piperacillin Sod/Tazobactam Sod (Zosyn) 4.5 gm in 120 mls @ 240 mls/hr IV NOW ONE Stop: 07/13/21 12:56 Last Infusion: 07/13/21 13:23 Dose: 0 mls/hr Documented by: [id number] Admin: 07/13/21 12:53 Dose: 240 mls/hr Documented by: [id number] Insulin Aspart (Insulin Aspart Per Unit) 6 units SC NOW STA Stop: 07/13/21 14:26 Last Admin: 07/13/21 14:49 Dose: 6 units Documented by: [id number] Cosigned by: [id number] Ioversol (Optiray 320 125ml) 120 ml IV ONCE ONE Stop: 07/13/21 12:31 Last Admin: 07/13/21 12:28 Dose: 120 ml Documented by: [id number] ECG Additional Comments: Normal sinus rhythm Poor R wave progression, consider anterior UT vs. lead placement vs. LVH Minor T-wave inversion in Anterior leads Abnormal ECG When compared with ECG of 11-MAY-2017 07:57, T wave inversion now evident in Anterior leads Confirmed by Vicente Antunez ([id number]) on 07/13/2021 1:51:02 PM Code Status & VTE Plan Code Status CODE: DNR/DNI VTE: SCDS, Heparin VTE Prophylaxis Plan VTE Prophylaxis will be ordered: Yes Supervising Physician Co-Signing Physician Notes Patient was seen and examined independently I discussed the case with Yuniel DEUTSCH I reviewed pertinent past medical social family history and also the plan of care and agree with the plan of care Patient is a 5-day prehospital history of some neurological decline confirmed to have punctate acute watershed infarcts noted in the central semiovale of the left frontal and parietal lobes with a few additional subcentimeter infarcts within the right cerebral convexity. He is out of the time window for any aggressive thrombolytic therapy. She will be managed with conservative care and permissive hypertension. Patient was slightly responsive on examination difficult to tell whether she had focal deficits that she was not cooperative to exam Cardiac exam is regular EKGs without atrial fibrillation for atrial fibrillation to be concerned with thrombotic emboli, CT of the neck shows no angio graphical evidence of carotid disease. Patient started on aspirin therapy if unable to take aspirin p.o. 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
[2021-07-13] MEDS ORDERED: LABETALOL HCL IV 5 MG/ML 20ML IV PRN ×2 (15:05→22:13)
--- NOTE | 2021-07-13 16:27 | CT Scan Report ---
CT abd pelvis wo con CLINICAL HISTORY: fall TECHNIQUE: Helical axial images of the abdomen and pelvis were obtained. Automated dose lowering tech niques and/or adjustment according to patient size were utilized for this exam. This exam was perfor med without intravenous contrast. COMPARISON: Comparison is made to CT abdomen pelvis 07/30/2019 FINDINGS: Exam is limited by patient motion. Lower chest: There is a right pleural effusion with bilateral consolidative changes. Liver: Unremarkable. No focal lesions are seen. Gallbladder and biliary tree: No calcified gallstones. Normal caliber wall. No intra- or extrahepatic biliary ductal dilation. Pancreas: Unremarkable, no focal lesions. Spleen: Unremarkable. Adrenals: Unremarkable. Kidneys and ureters: Unremarkable. Bladder: Unremarkable. Reproductive organs: Unremarkable. Bowel: Diverticulosis is seen without evidence of diverticulitis. Lipomatous lesion is seen in the il eum. Lymph nodes Retroperitoneal: Unremarkable. Mesenteric: Unremarkable. Pelvic: Unremarkable. Peritoneum: Poorly evaluated due to patient motion, there is a hyperdense peripheral halo in the supe rior anterior peritoneum which may reflect an omental infarct, likely remote. Vessels: Atherosclerotic calcifications are seen. Abdominal wall: Unremarkable. Bones: There is grade 2 anterolisthesis of L5-S1. Anterior wedge deformity is seen at the T11 vertebr al body, unchanged from prior exam. IMPRESSION: 1. No acute abnormality and in particular no evidence of acute fracture. 2. Additional findings as well. ACT 112: Negative or not required by law. Electronically signed by: Andry Kan M.D. 07/13/2021 4:26 PM
--- NOTE | 2021-07-13 16:29 | CT Scan Report ---
CT hip RT wo con CLINICAL HISTORY: fall TECHNIQUE: Multidetector row helical CT of the right knee was performed without intravenous contrast. Coronal and sagittal reformations were obtained. Automated dose lowering techniques and/or adjustmen t according to patient size were utilized for this examination. Comparison: None available at the time of this dictation. FINDINGS: The osseous structures are without fracture or dislocation. No joint effusion is seen. The joint spa fabrice are maintained. Please see CT abdomen pelvis for intraperitoneal findings. The soft tissues are u nremarkable apart from minimal stranding in the lateral soft tissues of the hip. IMPRESSION: No evidence of acute fracture or dislocation. Lateral subcutaneous tissue stranding may represent bru ising. ACT 112: Negative or not required by law. Electronically signed by: Andry Kan M.D. 07/13/2021 4:28 PM
[2021-07-13] MEDS ORDERED: INSULIN ASPART PER UNIT SC SCH ×2 (17:26→20:00)
[2021-07-13] MEDS ORDERED: GLUCOSE 40% GEL 15 GM TUBE PO PRN (17:26)
[2021-07-13] MEDS ORDERED: ACETAMINOPHEN 325 MG TAB PO PRN (17:26)
[2021-07-13] MEDS ORDERED: GLUCOSE 10 TABS/TUBE PO PRN (17:26)
[2021-07-13] MEDS ORDERED: ACETAMINOPHEN HOME PACK 500 MG TABLET PO PRN (17:26)
[2021-07-13] MEDS ORDERED: GLUCAGON FOR INJ 1 MG VIAL SQ PRN (17:26)
[2021-07-13] MEDS ORDERED: CARBOHYDRATES FOR HYPOGLYCEMIA PO PRN (17:26)
[2021-07-13] MEDS ORDERED: DEXTROSE 50% 50 ML SYRINGE IV PRN (17:26)
[2021-07-13] MEDS ORDERED: POLYETHYLENE (MIRALAX) 17 GM PACK PO PRN ×2 (17:26)
[2021-07-13] MEDS ORDERED: PATIENT'S HEIGHT AND/OR WEIGHT NEEDED SCH (17:45)
[2021-07-13] MEDS: PIPERACILLIN/TAZOBACTAM 3.375 GM in DEXTROSE 5% 100 ML IV SCH (18:46)
[2021-07-13] MEDS ORDERED: Nursing to Pharmacy Communication SCH (20:00)
--- NOTE | 2021-07-13 20:09 | Magnetic Resonance Report ---
MR brain wo con HISTORY: 89 years-old Female rule out cva acute strokelike symptoms. Recent fall. COMPARISON: Head CT July 13, 2021, brain MRI 02/12/2019 TECHNIQUE: Multiplanar multisequence MRI the brain was obtained without the use of IV contrast. FINDINGS: Multifocal subcentimeter foci of restricted diffusion are noted within the bladder show distribution of the centrum semiovale left frontal and parietal lobes and to a lesser extent within the right lolis etal lobe with question punctate foci within the right temporal and frontal lobes (for example please see images 11 and 12 of series 5). A few small infarcts are also noted within the periventricular le ft frontal lobe. No acute or subacute territorial infarct. Chronic lacunar infarcts of the left cereb ellar hemisphere. Motion degraded exam. No acute intracranial hemorrhage, midline shift, abnormal ext ra axial collection, hydrocephalus or intracranial mass. 1.2 x 0.7 cm bilobed falx cerebri meningioma redemonstrated on image 19 series 6 which is generally unchanged in size. Age-related involutional c hanges with extensive T2/FLAIR hyperintense foci throughout the white matter. The cerebral venous sinuses and major arterial flow voids appear patent. Moderate mucosal thickening of the ethmoid air cells. The mastoid air cells are clear. The skull and soft tissues are unremarkabl e. Prior bilateral lens repair. IMPRESSION: 1. Numerous punctate acute watershed infarcts are noted within the centrum semiovale of the left fron matthew and parietal lobes with a few additional subcentimeter acute infarcts within the right cerebral c onvexity. 2. No acute territorial infarct, intracranial hemorrhage or midline shift. 3. Age-related involutional changes with severe chronic microvascular ischemic disease. 4. Unchanged small falx cerebri meningioma. ACT 112: Negative or not required by law. The above report was generated using voice recognition software. It may contain grammatical, syntax o r spelling errors. Electronically signed by: Gabino Yin M.D. 07/13/2021 8:08 PM
[2021-07-13] MEDS: ALBUTEROL 0.083% NEBU SOLN 3 ML VIAL NEB SCH (20:51)
[2021-07-13] MEDS: DONEPEZIL HCL 5 MG TAB PO SCH (21:51)
[2021-07-13] MEDS ORDERED: PHARMACIST DISCHARGE MED REC CONSULT PRN (22:07)
[2021-07-13] MEDS: PANTOprazole 40 MG in SYRINGE 0 ML IV SCH (22:44)
[2021-07-13 22:49] LABS: Appearance Urine Clear (Clear); Bacteria Urine Automated Negative (Negative); Bilirubin Urine Negative (Negative); Blood Urine 2+ (Negative); Color Urine Yellow; Glucose Urine UA Negative (Negative); Ketones Urine Negative (Negative); Leukocyte Esterase Urine Negative (Negative); Nitrite Urine Negative (Negative); Protein Urine 3+ (Negative); Specific Gravity Urine 1.039 (1.000-1.030); Urobilinogen Urine Negative (Negative)
[2021-07-14] MEDS: ALBUTEROL 0.083% NEBU SOLN 3 ML VIAL NEB SCH ×4 (00:09→19:24)
[2021-07-14] MEDS: INSULIN ASPART PER UNIT SC SCH ×5 (00:56→21:26)
[2021-07-14] MEDS: PIPERACILLIN/TAZOBACTAM 3.375 GM in DEXTROSE 5% 100 ML IV SCH ×3 (02:30→17:58)
[2021-07-14 07:43] LABS: Basophils # (auto) 0.03 K/uL (0-0.2); Basophils % (auto) 0.2 %; Eosinophils # (auto) 0.08 K/uL (0-0.5); Eosinophils % (auto) 0.5 %; Hematocrit (blood only) 26.6 % (37-47); Hemoglobin 8.8 g/dL (12.0-16.0); Immature Granulocytes # (auto) 0.04 K/uL (0.00-0.02); Immature Granulocytes % (auto) 0.2 %; Lymphocytes # (auto) 0.74 K/uL (1.2-3.4); Lymphocytes % (auto) 4.5 %; Mean Corpuscular Hemoglobin 30.7 pg (25-34); Mean Corpuscular Hgb Conc 33.1 g/dL (32-36); Mean Corpuscular Volume 92.7 fL (80-100); Mean Platelet Volume 9.9 fL (7.4-10.4); Monocytes # (auto) 1.17 K/uL (0.11-0.59); Monocytes % (auto) 7.1 %; Neutrophils # (auto) 14.45 K/uL (1.4-6.5); Neutrophils % (auto) 87.5 %; Platelet Count 390 K/uL (130-400); RDW Coefficient of Variation 13.6 % (11.5-14.5); RDW Standard Deviation 45.9 fL (36.4-46.3); Red Blood Count 2.87 M/uL (4.2-5.4); White Blood Count 16.51 K/uL (4.8-10.8)
[2021-07-14 08:19] LABS: BUN Creatinine Ratio 29.5 (10-20); Calcium 8.3 mg/dl (8.5-10.1); Creatinine Clr Calc Pharmacy 35.9 ml/min; Est GFR (African American) 67.5 ml/min; Est GFR (Non-African American) 58.3 ml/min; Potassium 3.5 mmol/L (3.5-5.1)
[2021-07-14] MEDS: PANTOprazole 40 MG in SYRINGE 0 ML IV SCH (08:20)
[2021-07-14] MEDS: SERTRALINE HCL 50 MG TABLET PO SCH (08:20)
[2021-07-14] MEDS: ISOSORBIDE MONO EXTENDED REL 60 MG TABCR PO SCH (08:20)
[2021-07-14] MEDS: ASPIRIN 81 MG ECTAB PO SCH (08:20)
[2021-07-14] MEDS: AZITHROMYCIN 250 MG in DEXTROSE 5% 250 ML IV SCH (08:21)
[2021-07-14 09:28] LABS: Estimated Average Glucose 183 mg/dl
[2021-07-14 10:34] LABS: Bilirubin Direct 0.3 mg/dl (0-0.2); Bilirubin,Total 0.8 mg/dl (0.2-1.0); Total Protein 6.7 gm/dl (6.0-8.3)
[2021-07-14] MEDS: SODIUM CHLORIDE 0.9% 1000ML 1,000 ML IV SCH (10:38)
--- NOTE | 2021-07-14 12:08 | Neurology Consultation ---
Date of Consultation July 14, 2021 Assessment & Plan (1) Ischemic cerebrovascular accident (CVA): 1. MRI brain-numerous embolic strokes 2. aspirin 81 mg daily for now 3. with history of embolic stroke would consult cardiology for input risk benefit of plt vs anticoagulation 4. TTE- for further cardiac evaluation 5. ZIO out patient may be helpful 6. optimize HTN HLD DM LDL <70 - consider patients age 7. when able PT/OT for discharge needs (2) Pneumonia: 1. treat to culture (3) Hypoxia: 1. pneumonia antibiotics 2. currently on O2 venti mask 12 L Supervising Physician Co-Signing Physician Notes Patient was seen and examined this evening. Husand and son at bedside. Patient appears acutely ill on O2. She is lethargic but arouses to voice. Speech is soft. Following commands. No focal neuro deficits noted. Currently admitted with encephalopathy / hypoxic respiratory failure due to pnuemonia. Noted to have embolic appearsing stroke on MRI. Concerning for cardioembolic etiology , although not uncommonly seen in stystemic infection / ilness. Discussed with family. No known history of PAF. Continue ASA. Continue telemetry. Would consider cardiac event monitor if needed as outpatient with cardiology follow up as patient would be good appropriate for anticoagulation if found to have PAF. Family agreeable with plan. Please contact neurology with any additional questions or concerns. History of Present Illness Reason for Consultation: acute CVA Requesting Physician: Rosangela Stevenson MD Attending Physician: Rosangela Stevenson MD History of Present Illness Shaneka is an 89 year old female with PMH- CAD, HTN, HLD, Anxiety, GERD, DM II, Meningioma, Dementia, PAF, hiatal hernia.She presented to [facility] ED 07/13/21 with symptoms that started approx 4-5 days ago. She had weakness of her right leg and has also had 3-4 falls. She became more lethargic with decrease in eating and communicating. She reportedly fell on her right side and stomach/chest. She had routine CT of head, CTA of neck, CT of chest, and routine labs performed to include Troponin I. Her CT scan of her head and neck was negative for acute large vessel stroke, bleed, or mass. Her CT scan of her chest revealed bilateral opacities, lymphadenopathy and tracheomalacia. She was noted to be hypoxic as well. She was placed on oxymask with some improvement and was started on Zosyn. bilateral pneumonia which likely has a component to aspiration to it. We reviewed possible intubation and mechanical ventilation with her history and tracheal malacia that weaning from the ventilator will likely not be successful as well as her other comorbidities. We elected for conservative treatment of her pulmonary disease with CPAP/BiPAP continue Zosyn and Azithromycin.She also has a low HGB level with abdominal pain and discomfort. Her fecal occult was negative in the ED, she is also noted to have a bruise to her right hip from her previous falls at home. CT of the abdomen and pelvis was ordered. She is a DNR/DNI after confirmation with their siblings. She is still on 12 L O2 with venti mask. She is awake and answer yes no questions and follow commands. and son are bedside. Allergies Allergy/AdvReac Type Severity Reaction Status Date / Time diflunisal Allergy Unknown SWELLING Verified 07/12/21 15:32 Home Medications Medication Instructions Recorded Confirmed Type loteprednol etabonate 0.5 % eye 1 drops OP DAILY ml 06/03/19 07/13/21 History drops,suspension polyethylene glycol 3350 17 17 gm PO DAILY PRN gm 12/12/19 07/13/21 History gram/dose oral powder (Miralax) hydrocortisone 2.5 % topical cream 1 applic RI DAILY PRN #30 g 07/22/20 07/13/21 Rx with perineal applicator (Proctosol HC) meclizine 25 mg tablet See Rx Instructions .ROUTE 07/22/20 07/13/21 Rx .COMPLEX #30 tab nitroglycerin 0.4 mg sublingual 0.4 mg SL Q5M PRN #25 tab 11/12/20 07/13/21 Rx tablet vitamins A,C,T-poyt-wascyg 1 tab PO BID 11/12/20 07/13/21 History [PreserVision AREDS] isosorbide mononitrate 60 mg 60 mg PO DAILY #90 tab 02/10/21 07/13/21 Rx tablet,extended release 24 hr sertraline 50 mg tablet 25 mg PO DAILY #90 tab 02/10/21 07/13/21 Rx fexofenadine 180 mg tablet 180 mg PO DAILY #30 tab 06/13/21 07/13/21 Rx triamcinolone acetonide 0.1 % 1 applic TOPICAL BID #30 g 06/13/21 07/13/21 Rx topical cream acetaminophen 500 mg tablet 1,000 mg PO Q6H PRN 07/13/21 07/13/21 History (Tylenol Extra Strength) amlodipine 5 mg tablet 5 mg PO DAILY 07/13/21 07/13/21 History aspirin 81 mg tablet,delayed 81 mg PO DAILY 07/13/21 07/13/21 History release atenolol 50 mg tablet 50 mg PO DAILY 07/13/21 07/13/21 History calcium carbonate 160 mg calcium 0 mg PO DAILY 07/13/21 07/13/21 History (400 mg) chewable tablet donepezil 5 mg tablet (Aricept) 5 mg PO HS 07/13/21 07/13/21 History ibuprofen-diphenhydramine citrate 1 cap PO HS 07/13/21 07/13/21 History 200 mg-38 mg tablet (Advil PM) omeprazole 40 mg capsule,delayed 40 mg PO DAILY 07/13/21 07/13/21 History release Patient History Medical History (Updated 07/14/21 @ 15:23 by Rosangela Stevenson MD) Back pain Carpal tunnel syndrome on both sides Cognitive changes Dementia Diabetes mellitus DJD (degenerative joint disease) of knee Fatigue Frequent falls GERD without esophagitis Hypercholesterolemia Lumbar stenosis Meningioma Thoracic spondylosis Surgical History H/O: hysterectomy Hx of tonsillectomy Family History Mother Coronary heart disease Father Prostate cancer malignant neoplasm of prostate Myocardial infarction Denies family history of Ovarian cancer Breast cancer Colorectal cancer Social History Smoking Status: Never smoker Second Hand Exposure: No; Hx Alcohol Use: No Hx Substance Use: No Preferred Language: [place] 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 Beliefs That Will Affect Care: None marital status: Current Living Situation: Spouse current occupational status: retired Feels Safe at Home: Yes Safety Concerns: Feels Safe At This Time caffeine: No Dental Care, Regularly: No Physical Activity Frequency: 1-2 Times per Week Physical Activity Frequency Comment: walking/chores Seatbelt Use: always Sunscreen Use: No Assistive Devices: BiPap Review of Systems Review of Systems: Unobtainable due to mental health condition Physical Exam Physical Exam: Physical Exam: Constitutional: appearance nourished, ill appearing Ears, Nose, Mouth and Throat: mucous membranes moist, no injection and skin normal, eyes normal Cardiovascular: regular rate and rhythm Respiratory: course breath sounds Musculoskeletal: no peripheral edema and good distal pulses Skin: no stigmata of neurocutaneous disease noted and normal and intact Eyes: extraocular muscles intact (EOMI) NEUROLOGIC EXAMINATION: Mental status: Alert and minimally interactive Oriented to person Cranial Nerves no facial droop Coordination: hold hands in air right pronator sign Gait/Stance: Posture lying in bed Motor: move spontaneously and with command Strength: 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1 L (37-47) % POC Hct (37-47) % Plt Count 438 H (130-400) K/uL Neut # (Auto) 14.99 H (1.4-6.5) K/uL Lymph # (Auto) 0.94 L (1.2-3.4) K/uL Pacific # (Auto) 0.92 H (0.11-0.59) K/uL Immature Gran # (Auto) 0.05 H (0.00-0.02) K/uL PT 12.5 H (9.0-12.0) Seconds INR 1.3 H (0.9-1.1) VBG pH (7.36-7.41) VBG pCO2 (38-50) mmHg POC Sodium (135-144) mmol/L Sodium 129 L (136-145) mmol/L POC Chloride (101-112) mmol/L Chloride 95 L (98-107) mmol/L Anion Gap 12 H (3-11) POC Anion Gap (16-25) mmol/L POC BUN (7-18) mg/dl BUN 38 H (6-23) mg/dl BUN/Creatinine Ratio 35.2 H (10-20) Glucose 328 H* (70-99) mg/dl POC Glucose (70-99) mg/dl POC Glucose (other) (70-99) mg/dl Hemoglobin A1c (4.5-5.6) % Calcium (8.5-10.1) mg/dl Direct Bilirubin (0-0.2) mg/dl ALT 54 H (7-52) U/L Alkaline Phosphatase 258 H (34-104) U/L Total Creatine Kinase (26-192) U/L Troponin I 0.10 H* (0-0.04) ng/ml Albumin 3.3 L (3.4-5.0) gm/dl Globulin 4.2 H (2.5-4.0) gm/dl Albumin/Globulin Ratio 0.8 L (0.9-2) Ur Specific [place] (1.000-1.030) Urine Protein (Negative) Urine Blood (Negative) Urine RBC (Auto) (0-4) /hpf U Epithel Cells (Auto) (0-5) /lpf 07/13/21 07/13/21 07/13/21 Range/Units 12:19 12:46 18:07 WBC (4.8-10.8) K/uL RBC (4.2-5.4) M/uL Hgb (12.0-16.0) g/dL POC Hgb 9.2 L (12.0-16.0) g/dl Hct (37-47) % POC Hct 27 L (37-47) % Plt Count (130-400) K/uL Neut # (Auto) (1.4-6.5) K/uL Lymph # (Auto) (1.2-3.4) K/uL Pacific # (Auto) (0.11-0.59) K/uL Immature Gran # (Auto) (0.00-0.02) K/uL PT (9.0-12.0) Seconds INR (0.9-1.1) VBG pH 7.35 L (7.36-7.41) VBG pCO2 37 L (38-50) mmHg POC Sodium 129 L (135-144) mmol/L Sodium (136-145) mmol/L POC Chloride 96 L (101-112) mmol/L Chloride (98-107) mmol/L Anion Gap (3-11) POC Anion Gap 15.0 L (16-25) mmol/L POC BUN 47 H (7-18) mg/dl BUN (6-23) mg/dl BUN/Creatinine Ratio (10-20) Glucose (70-99) mg/dl POC Glucose 182 H (70-99) mg/dl POC Glucose (other) 337 H (70-99) mg/dl Hemoglobin A1c (4.5-5.6) % Calcium (8.5-10.1) mg/dl Direct Bilirubin (0-0.2) mg/dl ALT (7-52) U/L Alkaline Phosphatase (34-104) U/L Total Creatine Kinase (26-192) U/L Troponin I (0-0.04) ng/ml Albumin (3.4-5.0) gm/dl Globulin (2.5-4.0) gm/dl Albumin/Globulin Ratio (0.9-2) Ur Specific [place] (1.000-1.030) Urine Protein (Negative) Urine Blood (Negative) Urine RBC (Auto) (0-4) /hpf U Epithel Cells (Auto) (0-5) /lpf 07/13/21 07/13/21 07/14/21 Range/Units 18:45 22:09 00:39 WBC (4.8-10.8) K/uL RBC (4.2-5.4) M/uL Hgb (12.0-16.0) g/dL POC Hgb (12.0-16.0) g/dl Hct (37-47) % POC Hct (37-47) % Plt Count (130-400) K/uL Neut # (Auto) (1.4-6.5) K/uL Lymph # (Auto) (1.2-3.4) K/uL Pacific # (Auto) (0.11-0.59) K/uL Immature Gran # (Auto) (0.00-0.02) K/uL PT (9.0-12.0) Seconds INR (0.9-1.1) VBG pH (7.36-7.41) VBG pCO2 (38-50) mmHg POC Sodium (135-144) mmol/L Sodium (136-145) mmol/L POC Chloride (101-112) mmol/L Chloride (98-107) mmol/L Anion Gap (3-11) POC Anion Gap (16-25) mmol/L POC BUN (7-18) mg/dl BUN (6-23) mg/dl BUN/Creatinine Ratio (10-20) Glucose (70-99) mg/dl POC Glucose (70-99) mg/dl POC Glucose (other) (70-99) mg/dl Hemoglobin A1c (4.5-5.6) % Calcium (8.5-10.1) mg/dl Direct Bilirubin (0-0.2) mg/dl ALT (7-52) U/L Alkaline Phosphatase (34-104) U/L Total Creatine Kinase (26-192) U/L Troponin I 0.16 H* 0.16 H* (0-0.04) ng/ml Albumin (3.4-5.0) gm/dl Globulin (2.5-4.0) gm/dl Albumin/Globulin Ratio (0.9-2) Ur Specific Oxford 1.039 H (1.000-1.030) Urine Protein 3+ H (Negative) Urine Blood 2+ H (Negative) Urine RBC (Auto) 10-30 H (0-4) /hpf U Epithel Cells (Auto) 10-20 H (0-5) /lpf 07/14/21 07/14/21 07/14/21 Range/Units 00:55 05:35 07:02 WBC 16.51 H (4.8-10.8) K/uL RBC 2.87 L (4.2-5.4) M/uL Hgb 8.8 L (12.0-16.0) g/dL POC Hgb (12.0-16.0) g/dl Hct 26.6 L (37-47) % POC Hct (37-47) % Plt Count (130-400) K/uL Neut # (Auto) 14.45 H (1.4-6.5) K/uL Lymph # (Auto) 0.74 L (1.2-3.4) K/uL Pacific # (Auto) 1.17 H (0.11-0.59) K/uL Immature Gran # (Auto) 0.04 H (0.00-0.02) K/uL PT (9.0-12.0) Seconds INR (0.9-1.1) VBG pH (7.36-7.41) VBG pCO2 (38-50) mmHg POC Sodium (135-144) mmol/L Sodium (136-145) mmol/L POC Chloride (101-112) mmol/L Chloride (98-107) mmol/L Anion Gap (3-11) POC Anion Gap (16-25) mmol/L POC BUN (7-18) mg/dl BUN (6-23) mg/dl BUN/Creatinine Ratio (10-20) Glucose (70-99) mg/dl POC Glucose 118 H 169 H (70-99) mg/dl POC Glucose (other) (70-99) mg/dl Hemoglobin A1c (4.5-5.6) % Calcium (8.5-10.1) mg/dl Direct Bilirubin (0-0.2) mg/dl ALT (7-52) U/L Alkaline Phosphatase (34-104) U/L Total Creatine Kinase (26-192) U/L Troponin I (0-0.04) ng/ml Albumin (3.4-5.0) gm/dl Globulin (2.5-4.0) gm/dl Albumin/Globulin Ratio (0.9-2) Ur Specific [place] (1.000-1.030) Urine Protein (Negative) Urine Blood (Negative) Urine RBC (Auto) (0-4) /hpf U Epithel Cells (Auto) (0-5) /lpf 07/14/21 07/14/21 07/14/21 Range/Units 07:02 07:02 07:02 WBC (4.8-10.8) K/uL RBC (4.2-5.4) M/uL Hgb (12.0-16.0) g/dL POC Hgb (12.0-16.0) g/dl Hct (37-47) % POC Hct (37-47) % Plt Count (130-400) K/uL Neut # (Auto) (1.4-6.5) K/uL Lymph # (Auto) (1.2-3.4) K/uL Pacific # (Auto) (0.11-0.59) K/uL Immature Gran # (Auto) (0.00-0.02) K/uL PT (9.0-12.0) Seconds INR (0.9-1.1) VBG pH (7.36-7.41) VBG pCO2 (38-50) mmHg POC Sodium (135-144) mmol/L Sodium 131 L (136-145) mmol/L POC Chloride (101-112) mmol/L Chloride (98-107) mmol/L Anion Gap (3-11) POC Anion Gap (16-25) mmol/L POC BUN (7-18) mg/dl BUN 26 H (6-23) mg/dl BUN/Creatinine Ratio 29.5 H (10-20) Glucose 129 H (70-99) mg/dl POC Glucose (70-99) mg/dl POC Glucose (other) (70-99) mg/dl Hemoglobin A1c 8.0 H (4.5-5.6) % Calcium 8.3 L (8.5-10.1) mg/dl Direct Bilirubin 0.3 H (0-0.2) mg/dl ALT (7-52) U/L Alkaline Phosphatase 221 H (34-104) U/L Total Creatine Kinase 17 L (26-192) U/L Troponin I (0-0.04) ng/ml Albumin 3.0 L (3.4-5.0) gm/dl Globulin (2.5-4.0) gm/dl Albumin/Globulin Ratio (0.9-2) Ur Specific [place] (1.000-1.030) Urine Protein (Negative) Urine Blood (Negative) Urine RBC (Auto) (0-4) /hpf U Epithel Cells (Auto) (0-5) /lpf 07/14/21 Range/Units 11:56 WBC (4.8-10.8) K/uL RBC (4.2-5.4) M/uL Hgb (12.0-16.0) g/dL POC Hgb (12.0-16.0) g/dl Hct (37-47) % POC Hct (37-47) % Plt Count (130-400) K/uL Neut # (Auto) (1.4-6.5) K/uL Lymph # (Auto) (1.2-3.4) K/uL Pacific # (Auto) (0.11-0.59) K/uL Immature Gran # (Auto) (0.00-0.02) K/uL PT (9.0-12.0) Seconds INR (0.9-1.1) VBG pH (7.36-7.41) VBG pCO2 (38-50) mmHg POC Sodium (135-144) mmol/L Sodium (136-145) mmol/L POC Chloride (101-112) mmol/L Chloride (98-107) mmol/L Anion Gap (3-11) POC Anion Gap (16-25) mmol/L POC BUN (7-18) mg/dl BUN (6-23) mg/dl BUN/Creatinine Ratio (10-20) Glucose (70-99) mg/dl POC Glucose 222 H (70-99) mg/dl POC Glucose (other) (70-99) mg/dl Hemoglobin A1c (4.5-5.6) % Calcium (8.5-10.1) mg/dl Direct Bilirubin (0-0.2) mg/dl ALT (7-52) U/L Alkaline Phosphatase (34-104) U/L Total Creatine Kinase (26-192) U/L Troponin I (0-0.04) ng/ml Albumin (3.4-5.0) gm/dl Globulin (2.5-4.0) gm/dl Albumin/Globulin Ratio (0.9-2) Ur Specific [place] (1.000-1.030) Urine Protein (Negative) Urine Blood (Negative) Urine RBC (Auto) (0-4) /hpf U Epithel Cells (Auto) (0-5) /lpf Diagnostic Findings MRI brain-Numerous punctate acute watershed infarcts are noted within the centrum semiovale of the left frontal and parietal lobes with a few additional subcentimeter acute infarcts within the right cerebral convexity. No acute territorial infarct, intracranial hemorrhage or midline shift. Age-related involutional changes with severe chronic microvascular ischemic disease. . Unchanged small falx cerebri meningioma. CTA head-chronic intracranial findings without acute intracranial abnormality. 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 Multifocal stenoses of the left posterior cerebral artery with a short segment area of focal high-grade narrowing within the P2 segment. CTA neck-No stenosis or dissection within the major vessels of the neck. Extensive airspace opacities within the right upper lobe and partially visualized left upper lobe airspace opacity. The findings favor multifocal pneumonia, partially imaged on this exam. This can be assessed on follow-up ches t CT which has been ordered. Right paratracheal lymphadenopathy, partially imaged on this exam. This may be reactive however a neoplastic process cannot be completely excluded and this should be assessed on follow-up chest CT to ensure resolution. 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 CT chest-Multiple airspace disease and a central lymphadenopathy compatible with pneumonia with or without superimposed aspiration. (1) Pneumonia Laterality: right Lung location: upper lobe of lung Pneumonia type: due to unspecified organism Qualified Code(s): J18.9 - Pneumonia, unspecified organism
[2021-07-14] MEDS ORDERED: VANCOMYCIN CONSULT ACTIVE PRN (14:51)
[2021-07-14] MEDS ORDERED: VANCOMYCIN HCL 1,000 MG in SODIUM CHLORIDE 0.9% 250 ML IV SCH (15:00)
[2021-07-14] MEDS ORDERED: VANCOMYCIN HCL 1,250 MG in SODIUM CHLORIDE 0.9% 250 ML IV ONE (15:00)
--- NOTE | 2021-07-14 15:19 | Hospitalist Progress Note ---
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 of RADHA-f/u as outpt if desired but likely no intervention needed Appreciate Neuro consult-recommends cardiac event monitoring for occult Afib after discharge, continue ASA alone for now ECHO neg bubble study, with mild-mod , normal EF, no thrombus tele in NSR lipids controlled, but will add on high intensity statin for CVA -continue ASA 81mg daily -HgbA1C 8.0% with uncontrolled DMII-start back on meds for this, insulin while inpt, metformin as outpt -PT/OT/ST inpatient -permissive HTN for now but will need good BP control after stroke -treating PNA as below -needs cardiac event monitoring with Zio patch, loop recorder after discharge (2) Encephalopathy: Plan: Acute Encephalopathy - Metabolic likely secondary to hypoxemia and pneumonia complicated by her vascular dementia and CVA - UA negative- blood and urine culture pending - Continue oxygenation support -treating for CVA as above Improved today (3) Fall: Plan: as above, 2/2 CVA (4) Pneumonia: Plan: Multilobar likely aspiration/bacterial pneumonia with hypoxia - Patient with opacifications bilaterally, elevated WBC, hypoxia - Awaiting sputum culture -BCxs with 1/2 sets GPC in clusters--> start Vanc for now, get MRSA swab, repeat BCxs - continue Zosyn IV q6 and Azithromycin for atypical - Albuterol scheduled for 24 hours - cough assist - with flutter valve QID, Chest PT -O2 with CPAP and Oxymask to keep POx>88-90% (5) Anemia: Plan: hgb dropped on admission to 8.8 from baseline 12 one month ago, no reported bleeding CT a/P without significant findings no melena noted here -check fecal occult -continue PPI started here -follow CBC, transfuse as needed if Hgb<7-8 or if becomes HD unstable or obvious bleeding check Fe studies (6) Hyponatremia: Plan: Na+129 on arrival, now up to 131 could be from PNA, CVA, dehydration improved to 131 today start NS at 80mL/hr follow BMP in AM (7) Hypoxia: Plan: Hypoxia with respiratory failure requiring CPAP - As above (8) Hyperglycemia due to type 2 diabetes mellitus: Plan: BG 382 on admission with HgbA1C 8.0% plan to start metformin on discharge as above continue insulin with Novolog only for now, accuchekcs, ADA diet (9) GERD without esophagitis: Plan: Chronic - Protonix 40mg IV BID started but no obvious bleeding fecal occult change to po Protonix (10) Hypertension: Plan: Poorly controlled- at this time do not feel this is contributing to her encephalopathy permissive HTN as above for CVA NS to keep BPs up hold home amlodipine, atenolol (11) Elevated troponin: Plan: Likely type II demand ischemia from hypoxia - no dynamic ECG changes - Troponin 0.1/0.16/0.16 (12) DJD (degenerative joint disease) of knee: Plan: Patient takes Ibuprofen at home with advil qpm on most days - with drop in her HGB will hold this as well as other NSAIDs dc all NSAIDs (13) Age-related physical debility: Plan: Decrease in overall memory and function - PT/OT consult placed -will need rehab (14) Anxiety: Plan: Chronic no acute need (15) CAD (coronary artery disease): Plan: Documented as such, but unable to find vessels- she has not had a cardiac catheterization that is in our system - Continue ASA - Continue Isosorbide - PRN NTG (16) Meningioma: Plan: Found incidentally on CT/MRI of the head - follows with neurology [facility] for routine follow up (17) Hypercholesterolemia: Plan: start statin as above (18) Dementia: Plan: mod -severe as above supportive care (19) Bacteremia: Plan: as above, coul dbe contaminate but added on Vanco 1/2 BCxs with GPC repeat cxs (20) Aortic stenosis: Plan: mild-mod on ECHO follow as outpt Plan: Proph-SCDs due to drop in hgb DIspo-continue dstay PCU DNR/DNI Prognosis guarded, discussed care with and son at bedside Admission and Anticipated Discharge Date Admission Date: July 13, 2021 Subjective Pt awake and alert, with cognitive deficits at baseline as per family at bedside. Is weaned off CPAP to 8L Oxymask when I saw her. Following commands, answers simple yes, no questions. Does admit to some SOB, cough, no CP. No abd pain. Is eating. Tele with NSR rates 60-70s Family denies any previous h/o PAF although it is mentioned in her H&P? I cannot find records of such Review of Systems Review of Systems: Unobtainable due to cognitive status Physical Exam Constitutional: WD/WN, vitals as above Eyes: + anicteric sclerae Neck: trachea midline, no thyromegaly Respiratory: normal respiratory effort and + cough Auscultation: + crackles (bilat lower and middle lung chavarria); no rhonchi Cardiovascular: RRR, no murmur, no edema Chest (Breasts): Chest: normal inspection of chest Gastrointestinal (Abdomen): normal bowel sounds, soft, nontender, no hepatosplenomegaly Musculoskeletal: Extremities: extremities normal to inspection; no cyanosis and no clubbing Skin: no rashes, warm and dry Neurologic: CN's II-XI intact bilaterally, + focal motor deficit (RUE and RLE with 4/5 strength throughout,otherwise 5/5) and awake Speech / Cognition: normal speech Psychiatric: Orientation: alert, oriented to person and cooperative Lymphatic: no lymphedema Results & Data Results & Data ([facility]) Vital Signs (Past 12 Hours) Vital Signs Temp Pulse Pulse Resp BP Pulse Ox Pulse Ox 07/14/21 14:48 90 07/14/21 13:12 66 19 95 07/14/21 11:48 36.8 C 62 18 162/63 H 93 07/14/21 08:00 69 07/14/21 07:37 60 60 24 94 07/14/21 07:33 36.9 C 60 22 159/62 H 95 07/14/21 03:40 65 24 94 07/14/21 03:29 36.7 C 65 20 169/69 H 97 Pulse Ox Pulse Ox 07/14/21 14:48 90 85 L 07/14/21 13:12 07/14/21 11:48 07/14/21 08:00 07/14/21 07:37 07/14/21 07:33 07/14/21 03:40 07/14/21 03:29 Laboratory Results labs reviewed BCx GPC in clusters 1/2 sets PG Care Time/CCT Total # of Minutes Spent Total Time Spent with Patient: Total time spent is greater than 50% in coordination of care (as documented) at patient's floor/unit and/or counseling patient: Coding Level of Care Code 07530 Subseq Hosp Care Lvl 3 Diagnoses Encephalopathy G93.40 Pneumonia J18.9 Hypoxia R09.02 Hyperglycemia due to type 2 diabetes mellitus E11.65 GERD without esophagitis K21.9 Hypertension I10 Elevated troponin R77.8 DJD (degenerative joint disease) of knee M17.10 Age-related physical debility R54 Anxiety F41.9 CAD (coronary artery disease) I25.10 Meningioma D32.9 Ischemic cerebrovascular accident (CVA) I63.9 Anemia D64.9 Anemia type: unspecified type Hypercholesterolemia E78.00 Dementia F03.90 Hyponatremia E87.1 Bacteremia R78.81 Fall W19.XXXA Aortic stenosis I35.0 (1) Anemia Anemia type: unspecified type Qualified Code(s): D64.9 - Anemia, unspecified
--- NOTE | 2021-07-14 17:13 | XCELERA ---
[id number]
[2021-07-14] MEDS ORDERED: Nursing to Pharmacy Communication SCH (18:45)
[2021-07-14] MEDS: DONEPEZIL HCL 5 MG TAB PO SCH (20:21)
[2021-07-15] MEDS: ALBUTEROL 0.083% NEBU SOLN 3 ML VIAL NEB SCH ×4 (00:17→19:10)
[2021-07-15] MEDS: SODIUM CHLORIDE 0.9% 1000ML 1,000 ML IV SCH ×2 (00:48→20:12)
[2021-07-15] MEDS: PIPERACILLIN/TAZOBACTAM 3.375 GM in DEXTROSE 5% 100 ML IV SCH ×3 (02:31→20:13)
[2021-07-15] MEDS ORDERED: VANCOMYCIN HCL 1,000 MG in SODIUM CHLORIDE 0.9% 250 ML IV SCH (05:00)
[2021-07-15 07:27] LABS: Basophils # (auto) 0.02 K/uL (0-0.2); Basophils % (auto) 0.1 %; Eosinophils # (auto) 0.02 K/uL (0-0.5); Eosinophils % (auto) 0.1 %; Hemoglobin 7.6 g/dL (12.0-16.0); Immature Granulocytes # (auto) 0.05 K/uL (0.00-0.02); Immature Granulocytes % (auto) 0.3 %; Lymphocytes # (auto) 0.78 K/uL (1.2-3.4); Mean Corpuscular Hemoglobin 29.6 pg (25-34); Mean Corpuscular Hgb Conc 31.7 g/dL (32-36); Mean Corpuscular Volume 93.4 fL (80-100); Mean Platelet Volume 9.5 fL (7.4-10.4); Monocytes # (auto) 1.18 K/uL (0.11-0.59); Monocytes % (auto) 7.6 %; Neutrophils # (auto) 13.47 K/uL (1.4-6.5); Neutrophils % (auto) 86.9 %; Platelet Count 372 K/uL (130-400); RDW Coefficient of Variation 13.5 % (11.5-14.5); RDW Standard Deviation 46.4 fL (36.4-46.3); Red Blood Count 2.57 M/uL (4.2-5.4); White Blood Count 15.52 K/uL (4.8-10.8)
[2021-07-15 07:44] LABS: Polychromasia 1+
[2021-07-15] MEDS: INSULIN ASPART PER UNIT SC SCH ×4 (08:05→22:14)
[2021-07-15] MEDS: AZITHROMYCIN 250 MG in DEXTROSE 5% 250 ML IV SCH (08:18)
[2021-07-15 08:23] LABS: Ferritin 111.5 ng/ml (8-388)
[2021-07-15 08:34] LABS: Albumin Globulin Ratio 0.8 (0.9-2); Albumin Level 2.8 gm/dl (3.4-5.0); BUN Creatinine Ratio 26.4 (10-20); Bilirubin,Total 0.9 mg/dl (0.2-1.0); Calcium 7.8 mg/dl (8.5-10.1); Creatinine Clr Calc Pharmacy 34.7 ml/min; Est GFR (African American) 64.8 ml/min; Est GFR (Non-African American) 55.9 ml/min; Globulin 3.4 gm/dl (2.5-4.0); Potassium 3.3 mmol/L (3.5-5.1); Total Protein 6.2 gm/dl (6.0-8.3)
[2021-07-15] MEDS: SERTRALINE HCL 50 MG TABLET PO SCH (08:41)
[2021-07-15] MEDS: ASPIRIN 81 MG ECTAB PO SCH (08:41)
[2021-07-15] MEDS: ISOSORBIDE MONO EXTENDED REL 60 MG TABCR PO SCH (08:41)
[2021-07-15] MEDS: PANTOprazole 40 MG TAB PO SCH (08:41)
[2021-07-15] MEDS ORDERED: SODIUM CHLORIDE 0.9% 250 ML IV PRN ×2 (09:30→19:32)
--- NOTE | 2021-07-15 09:36 | Pharmacy Report ---
Pharmacy Vanc AUC Short Note - Date of Service July 15, 2021 - Assessment & Plan Assessment 89 year old F receiving Vancomycin for treatment of possible bacteremia. * Remains on Zosyn and Azithromycin as well for possible aspiration/atypical pneumonia * Coag negative staph grew in anaerobic bottle of 1 blood culture from admission. Repeat cultures pending from 07/14. Likely a contaminant. * 24-hr Tmax of 38C. Leukocytosis improving. Renal fxn stable. Plan Vancomycin * AUC/ENRIQUE is the preferred PK/PD target for vancomycin * AUC guided dosing is effective and associated with decreased risk of nephrotoxicity compared to traditional trough targets * Loading dose of 1250 mg IV x 1 * Maintenance dose of 1000 mg IV every 24 hours * No level ordered yet given long half life Zosyn * Continue 3.375 g IV every 8 hours Pharmacy will continue to follow and will adjust dose/frequency as necessary. Thank you.
[2021-07-15] MEDS: ATORVASTATIN 40 MG TAB PO SCH (10:15)
[2021-07-15 11:08] LABS: Iron < 10 mcg/dl (35-150); Unsaturated Iron Binding Cap 230 mcg/dl (155-355)
[2021-07-15 12:24] LABS: Hematocrit (blood only) 24.1 % (37-47); Hemoglobin 7.8 g/dL (12.0-16.0); Mean Corpuscular Hemoglobin 30.2 pg (25-34); Mean Corpuscular Hgb Conc 32.4 g/dL (32-36); Mean Corpuscular Volume 93.4 fL (80-100); Mean Platelet Volume 8.9 fL (7.4-10.4); Platelet Count 357 K/uL (130-400); RDW Coefficient of Variation 13.6 % (11.5-14.5); Red Blood Count 2.58 M/uL (4.2-5.4); White Blood Count 15.77 K/uL (4.8-10.8)
[2021-07-15] MEDS ORDERED: ACETAMINOPHEN 1,000 MG/100 ML VIAL IV STA (15:37)
--- NOTE | 2021-07-15 15:38 | Hospitalist Progress Note ---
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 of RADHA-f/u as outpt if desired but likely no intervention needed Appreciate Neuro consult-recommends cardiac event monitoring for occult Afib after discharge, continue ASA alone for now ECHO neg bubble study, with mild-mod , normal EF, no thrombus tele in NSR lipids controlled, but added on high intensity statin for CVA -continue ASA 81mg daily -HgbA1C 8.0% with uncontrolled DMII-start back on meds for this, insulin while inpt, metformin as outpt -PT/OT/ST inpatient -permissive HTN for now but will need good BP control after stroke -treating PNA as below -needs cardiac event monitoring with Zio patch, loop recorder after discharge -hgb trending downward and did recommend PRBC transfusion to optimize O2 delivery to brain tissue, but family declines at this time due to likely moving towards SOLAR 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 I had a discussion with the patient's and son at length and decision made to continue current care, continue CPAP and continue antibiotics for pneumonia for now. But if patient remains tachypneic, not tolerating CPAP and oxygenation worsening, okay to transition to comfort measures only and use morphine as needed for shortness of breath or pain. Her and son state that her advanced directives note that she would not want any life-saving measures if in a condition with a poor prognosis. I do not think her quality of life will be good at all now given that she has right hemiparesis from stroke on top of ongoing moderate-severe dementia. The patient's son is going to further discuss all of this with his siblings, but he feels this will be the right decision. (2) Encephalopathy: Plan: Acute Encephalopathy - Metabolic likely secondary to hypoxemia and pneumonia complicated by her vascular dementia and CVA - UA negative- urine culture pending -Blood culture with coagulase-negative staph-likely contaminant Repeat blood cultures no growth to date - Continue oxygenation support -treating for CVA as above Was improved slightly on 07/14, now worsening again (3) Pneumonia: Plan: Multilobar likely aspiration/bacterial pneumonia with hypoxia - Patient with extensive opacifications bilaterally, elevated WBC, worsening hypoxia - Awaiting sputum culture -BCxs with 1/2 sets with coagulase-negative Staphylococcus-likely contaminant -Okay to DC IV vancomycin - continue Zosyn IV q6 and Azithromycin for pneumonia -Continue albuterol nebs - cough assist - with flutter valve QID, Chest PT -O2 with CPAP and Oxymask to keep POx>88-90% -She is quite tachypneic -If further decompensates, family desires for her to transition to SOLAR MAINTENANCE TECHNICIAN (4) Hypoxia: Plan: Hypoxia with respiratory failure requiring CPAP - As above (5) Anemia: Plan: hgb dropped on admission to 8.8 from baseline 12.9 in 08/[address] a/P without significant findings no melena noted here or at home as per does report that she had fairly hard fall right onto her abdomen- repeated CT abdomen/pelvis on 07/15-again no evidence of bleeding intra- abdominally or in RP Iron studies show severe iron deficiency with undetectable serum iron -check fecal occult -continue PPI started here -Give IV Venofer -Family declines PRBC transfusion at this time due to worsening condition and likely will end up transitioning to comfort measures only if decompensates further -Follow CBC in the morning (6) Hyponatremia: Plan: Na+129 on arrival, now up to 132 could be from PNA, CVA, dehydration Continue NS but reduce to 70mL/hr follow BMP in AM (7) Hyperglycemia due to type 2 diabetes mellitus: Plan: BG 382 on admission with HgbA1C 8.0% plan to start metformin on discharge as above continue insulin with Novolog only for now, accuchekcs, ADA diet (8) GERD without esophagitis: Plan: Chronic fecal occult pending Continue po Protonix (9) Hypertension: Plan: Poorly controlled- at this time do not feel this is contributing to her enc ephalopathy permissive HTN as above for CVA NS to keep BPs up hold home amlodipine, atenolol from home, but could potentially restart tomorrow -Avoid hypotension due to recent watershed infarcts (10) Elevated troponin: Plan: Likely type II demand ischemia from hypoxia - no dynamic ECG changes - Troponin 0.1/0.16/0.16 (11) DJD (degenerative joint disease) of knee: Plan: Patient takes Ibuprofen at home with advil qpm on most days - with drop in her HGB will hold this as well as other NSAIDs dc all NSAIDs (12) Age-related physical debility: Plan: Decrease in overall memory and function - PT/OT consult placed -will need rehab (13) Anxiety: Plan: Chronic no acute need (14) CAD (coronary artery disease): Plan: Documented as such, but unable to find vessels- she has not had a cardiac catheterization that is in our system - Continue ASA - Continue Isosorbide - PRN NTG (15) Meningioma: Plan: Found incidentally on CT/MRI of the head - follows with neurology [facility] for routine follow up (16) Hypercholesterolemia: Plan: start statin as above (17) Fall: Plan: as above, 2/2 CVA (18) Dementia: Plan: mod -severe as above supportive care (19) Bacteremia: Plan: as above 1/2 BCxs with regulates negative staph repeat blood cxs-no growth to date Discontinue vancomycin (20) Aortic stenosis: Plan: mild-mod on ECHO follow as outpt Plan: Proph-SCDs due to drop in hgb DIspo-continued stay PCU DNR/DNI Prognosis quite guarded, discussed care with and son at bedside and again on the phone later Admission and Anticipated Discharge Date Admission Date: July 13, 2021 Subjective Patient requiring more oxygen today than yesterday and was quite tachypneic when I saw her. She is now on 11-12 L of oxygen mask. She is less interactive and a little more lethargic today. Her right-sided hemiparesis is more flaccid today than previous. No new focal deficits. She would not speak to me, but did try to follow some commands. No evidence of bleeding anywhere. Her at the bedside reports no known blood in the stool at home and the last bowel movement he saw she had shortly before admission was brown. He does report that she fell pretty hard on her abdomen prior to admission. Telemetry with normal sinus rhythm with rates in the 70s I obtained CT of the head and abdomen/pelvis to look for source of bleeding and for any hemorrhagic conversion of stroke or worsening stroke on CT. This was all negative. I called the patient's and son back in the evening and discussed her care. They declined for her to have blood transfusion for anemia in the setting of stroke, and wish for her to transition to comfort measures if she continues to decline through the night. They are okay with giving morphine for comfort if she is having tachypnea, worsening hypoxia, despite high flow nasal cannula, CPAP, or CPAP intolerance. Review of Systems Review of Systems: Unobtainable due to cognitive status Physical Exam Constitutional: + acute distress (With tachypnea) and + ill appearing Eyes: + anicteric sclerae and EOM intact bilaterally Neck: trachea midline, no thyromegaly Respiratory: + tachypneic; no cough Auscultation: + crackles (bilat lower and middle lung chavarria); no rhonchi Cardiovascular: RRR, no murmur, no edema Chest (Breasts): Chest: normal inspection of chest Gastrointestinal (Abdomen): normal bowel sounds, soft, nontender, no hepatosplenomegaly Musculoskeletal: Extremities: extremities normal to inspection; no cyanosis and no clubbing Skin: no rashes, warm and dry Neurologic: + focal motor deficit (Now flaccid in the RUE and RLE, left-sided hemineglect, 5/5 strength left ) and awake Speech / Cognition: normal speech Psychiatric: Orientation: alert (But not as alert as yesterday) Lymphatic: no lymphedema Results & Data Results & Data ([facility]) Vital Signs (Past 12 Hours) Vital Signs Temp Pulse Resp BP Pulse Ox 07/15/21 15:18 37.9 C H 112 H 24 151/86 H 93 07/15/21 12:35 78 20 90 07/15/21 08:11 37.2 C 72 22 170/73 H 94 07/15/21 07:23 68 22 90 07/15/21 04:42 36.7 C 82 17 154/86 H 94 Laboratory Results 07/15/21 07/15/21 07/15/21 Range/Units 20:19 16:09 16:08 WBC (4.8-10.8) K/uL RBC (4.2-5.4) M/uL Hgb (12.0-16.0) g/dL Hct (37-47) % MCV (80-100) fL MCH (25-34) pg MCHC (32-36) g/dL RDW Std Deviation (36.4-46.3) fL RDW Coeff of Gustavo (11.5-14.5) % Plt Count (130-400) K/uL MPV (7.4-10.4) fL Immature Gran % (Auto) % Neut % (Auto) % Lymph % (Auto) % [place] % (Auto) % Eos % (Auto) % Baso % (Auto) % Neut # (Auto) (1.4-6.5) K/uL Lymph # (Auto) (1.2-3.4) K/uL [place] # (Auto) (0.11-0.59) K/uL Eos # (Auto) (0-0.5) K/uL Baso # (Auto) (0-0.2) K/uL Immature Gran # (Auto) (0.00-0.02) K/uL Polychromasia Sodium (136-145) mmol/L Potassium (3.5-5.1) mmol/L Chloride (98-107) mmol/L Carbon Dioxide (21-32) mmol/L Anion Gap (3-11) BUN (6-23) mg/dl Creatinine (0.6-1.2) mg/dl Est Cr Clr Drug Dosing ml/min Est GFR ( Amer) ml/min Est GFR (Non-Af Amer) ml/min BUN/Creatinine Ratio (10-20) Glucose (70-99) mg/dl POC Glucose 196 H 283 H 246 H (70-99) mg/dl Calcium (8.5-10.1) mg/dl Magnesium (1.7-2.4) mg/dl Iron (35-150) mcg/dl TIBC Unsaturated IBC (155-355) mcg/dl Transferrin % Sat Ferritin (8-388) ng/ml Total Bilirubin (0.2-1.0) mg/dl AST (13-39) U/L ALT (7-52) U/L Alkaline Phosphatase (34-104) U/L Total Protein (6.0-8.3) gm/dl Albumin (3.4-5.0) gm/dl Globulin (2.5-4.0) gm/dl Albumin/Globulin Ratio (0.9-2) TSH (0.300-4.500) uIu/ml Blood Type Blood Type Recheck Antibody Screen Crossmatch 07/15/21 07/15/21 07/15/21 Range/Units 12:11 11:25 09:44 WBC 15.77 H (4.8-10.8) K/uL RBC 2.58 L (4.2-5.4) M/uL Hgb 7.8 L (12.0-16.0) g/dL Hct 24.1 L (37-47) % MCV 93.4 (80-100) fL MCH 30.2 (25-34) pg MCHC 32.4 (32-36) g/dL RDW Std Deviation 47.0 H (36.4-46.3) fL RDW Coeff of Gustavo 13.6 (11.5-14.5) % Plt Count 357 (130-400) K/uL MPV 8.9 (7.4-10.4) fL Immature Gran % (Auto) % Neut % (Auto) % Lymph % (Auto) % [place] % (Auto) % Eos % (Auto) % Baso % (Auto) % Neut # (Auto) (1.4-6.5) K/uL Lymph # (Auto) (1.2-3.4) K/uL [place] # (Auto) (0.11-0.59) K/uL Eos # (Auto) (0-0.5) K/uL Baso # (Auto) (0-0.2) K/uL Immature Gran # (Auto) (0.00-0.02) K/uL Polychromasia Sodium (136-145) mmol/L Potassium (3.5-5.1) mmol/L Chloride (98-107) mmol/L Carbon Dioxide (21-32) mmol/L Anion Gap (3-11) BUN (6-23) mg/dl Creatinine (0.6-1.2) mg/dl Est Cr Clr Drug Dosing ml/min Est GFR ( Amer) ml/min Est GFR (Non-Af Amer) ml/min BUN/Creatinine Ratio (10-20) Glucose (70-99) mg/dl POC Glucose 201 H (70-99) mg/dl Calcium (8.5-10.1) mg/dl Magnesium (1.7-2.4) mg/dl Iron (35-150) mcg/dl TIBC Unsaturated IBC (155-355) mcg/dl Transferrin % Sat Ferritin (8-388) ng/ml Total Bilirubin (0.2-1.0) mg/dl AST (13-39) U/L ALT (7-52) U/L Alkaline Phosphatase (34-104) U/L Total Protein (6.0-8.3) gm/dl Albumin (3.4-5.0) gm/dl Globulin (2.5-4.0) gm/dl Albumin/Globulin Ratio (0.9-2) TSH (0.300-4.500) uIu/ml Blood Type O Positive Blood Type Recheck Antibody Screen NEGATIVE Crossmatch See Detail 07/15/21 07/15/21 07/15/21 Range/Units 07:07 06:50 06:50 WBC (4.8-10.8) K/uL RBC (4.2-5.4) M/uL Hgb (12.0-16.0) g/dL Hct (37-47) % MCV (80-100) fL MCH (25-34) pg MCHC (32-36) g/dL RDW Std Deviation (36.4-46.3) fL RDW Coeff of Gustavo (11.5-14.5) % Plt Count (130-400) K/uL MPV (7.4-10.4) fL Immature Gran % (Auto) % Neut % (Auto) % Lymph % (Auto) % [place] % (Auto) % Eos % (Auto) % Baso % (Auto) % Neut # (Auto) (1.4-6.5) K/uL Lymph # (Auto) (1.2-3.4) K/uL [place] # (Auto) (0.11-0.59) K/uL Eos # (Auto) (0-0.5) K/uL Baso # (Auto) (0-0.2) K/uL Immature Gran # (Auto) (0.00-0.02) K/uL Polychromasia Sodium (136-145) mmol/L Potassium (3.5-5.1) mmol/L Chloride (98-107) mmol/L Carbon Dioxide (21-32) mmol/L Anion Gap (3-11) BUN (6-23) mg/dl Creatinine (0.6-1.2) mg/dl Est Cr Clr Drug Dosing ml/min Est GFR ( Amer) ml/min Est GFR (Non-Af Amer) ml/min BUN/Creatinine Ratio (10-20) Glucose (70-99) mg/dl POC Glucose 214 H (70-99) mg/dl Calcium (8.5-10.1) mg/dl Magnesium (1.7-2.4) mg/dl Iron (35-150) mcg/dl TIBC Unsaturated IBC (155-355) mcg/dl Transferrin % Sat Ferritin (8-388) ng/ml Total Bilirubin (0.2-1.0) mg/dl AST (13-39) U/L ALT (7-52) U/L Alkaline Phosphatase (34-104) U/L Total Protein (6.0-8.3) gm/dl Albumin (3.4-5.0) gm/dl Globulin (2.5-4.0) gm/dl Albumin/Globulin Ratio (0.9-2) TSH 1.447 (0.300-4.500) uIu/ml Blood Type Blood Type Recheck O Positive Antibody Screen Crossmatch 07/15/21 07/15/21 07/15/21 Range/Units 06:50 06:50 06:50 WBC 15.52 H (4.8-10.8) K/uL RBC 2.57 L (4.2-5.4) M/uL Hgb 7.6 L (12.0-16.0) g/dL Hct 24.0 L (37-47) % MCV 93.4 (80-100) fL MCH 29.6 (25-34) pg MCHC 31.7 L (32-36) g/dL RDW Std Deviation 46.4 H (36.4-46.3) fL RDW Coeff of Gustavo 13.5 (11.5-14.5) % Plt Count 372 (130-400) K/uL MPV 9.5 (7.4-10.4) fL Immature Gran % (Auto) 0.3 % Neut % (Auto) 86.9 % Lymph % (Auto) 5.0 % [place] % (Auto) 7.6 % Eos % (Auto) 0.1 % Baso % (Auto) 0.1 % Neut # (Auto) 13.47 H (1.4-6.5) K/uL Lymph # (Auto) 0.78 L (1.2-3.4) K/uL [place] # (Auto) 1.18 H (0.11-0.59) K/uL Eos # (Auto) 0.02 (0-0.5) K/uL Baso # (Auto) 0.02 (0-0.2) K/uL Immature Gran # (Auto) 0.05 H (0.00-0.02) K/uL Polychromasia 1+ Sodium 132 L (136-145) mmol/L Potassium 3.3 L (3.5-5.1) mmol/L Chloride 100 (98-107) mmol/L Carbon Dioxide 20 L (21-32) mmol/L Anion Gap 12 H (3-11) BUN 24 H (6-23) mg/dl Creatinine 0.91 (0.6-1.2) mg/dl Est Cr Clr Drug Dosing 34.7 ml/min Est GFR ( Amer) 64.8 ml/min Est GFR (Non-Af Amer) 55.9 ml/min BUN/Creatinine Ratio 26.4 H (10-20) Glucose 177 H (70-99) mg/dl POC Glucose (70-99) mg/dl Calcium 7.8 L (8.5-10.1) mg/dl Magnesium 2.0 (1.7-2.4) mg/dl Iron < 10 L (35-150) mcg/dl TIBC TNP Unsaturated IBC 230 (155-355) mcg/dl Transferrin % Sat TNP Ferritin 111.5 (8-388) ng/ml Total Bilirubin 0.9 (0.2-1.0) mg/dl AST 23 (13-39) U/L ALT 31 (7-52) U/L Alkaline Phosphatase 214 H (34-104) U/L Total Protein 6.2 (6.0-8.3) gm/dl Albumin 2.8 L (3.4-5.0) gm/dl Globulin 3.4 (2.5-4.0) gm/dl Albumin/Globulin Ratio 0.8 L (0.9-2) TSH (0.300-4.500) uIu/ml Blood Type Blood Type Recheck Antibody Screen Crossmatch PG Care Time/CCT Total # of Minutes Spent Total Time Spent with Patient: Total time spent is greater than 50% in coordination of care (as documented) at patient's floor/unit and/or counseling patient: Coding Level of Care Code 25553 Subseq Hosp Care Lvl 3 Diagnoses Ischemic cerebrovascular accident (CVA) I63.9 Encephalopathy G93.40 Fall W19.XXXA Pneumonia J18.9 Anemia D64.9 Anemia type: unspecified type Hyponatremia E87.1 Hypoxia R09.02 Hyperglycemia due to type 2 diabetes mellitus E11.65 GERD without esophagitis K21.9 Hypertension I10 Elevated troponin R77.8 DJD (degenerative joint disease) of knee M17.10 Age-related physical debility R54 Anxiety F41.9 CAD (coronary artery disease) I25.10 Meningioma D32.9 Hypercholesterolemia E78.00 Dementia F03.90 Bacteremia R78.81 Aortic stenosis I35.0 (1) Anemia Anemia type: unspecified type Qualified Code(s): D64.9 - Anemia, unspecified
[2021-07-15] MEDS ORDERED: IRON SUCROSE 300 MG in SODIUM CHLORIDE 0.9% 250 ML IV ONE (16:00)
[2021-07-15] MEDS ORDERED: OPTIRAY 320 100ml IV ONE (17:56)
--- NOTE | 2021-07-15 18:45 | CT Scan Report ---
CT head/brain wo con CLINICAL HISTORY: CVA,worsening right sided hemiparesis . Evaluate for intracranial hemorrhage. COMPARISON STUDY: 07/13/2021 CT DOSE: TECHNIQUE: Standard CT of the Brain was performed without IV contrast. A dose lowering technique was utilized adhering to the principles of ALARA. FINDINGS: Extraaxial space: There is no evidence for subdural hematoma. There are no extra-axial fluid collecti ons. Ventricles and cisterns: The ventricles are mildly dilated bilaterally. There is no evidence for mid line shift or mass effect. Parenchyma: There is no subarachnoid or intraparenchymal hemorrhage. There is no evidence for an acu te infarct or cerebral edema. There is mild cerebral cortical atrophy and decreased attenuation in th e periventricular white matter representing remote small vessel disease. There are no gross mass lesi ons. Osseous structures: There is no evidence for an acute fracture. The visualized paranasal sinuses are clear. The mastoid air cells are clear bilaterally. Soft tissues: There is no evidence for focal soft tissue swelling. IMPRESSION: No acute intracerebral pathology. Cerebral cortical atrophy and remote small vessel disea se are again seen. ACT 112: Negative or not required by law. Electronically signed by: Frederick Holder M.D. 07/15/2021 6:43 PM
--- NOTE | 2021-07-15 19:29 | CT Scan Report ---
CT abd pelvis IV con only CLINICAL HISTORY: Decreasing hemoglobin. Evaluate for intra-abdominal hemorrhage. COMPARISON STUDY: 07/13/2021 CT DOSE: 1101.11 mGy.cm TECHNIQUE: Standard CT of the Abdomen and Pelvis was performed with IV contrast. A dose lowering alissa hnique was utilized adhering to the principles of ALARA. Contrast Volume: Optiray 320, 94 ml. The patient did not receive oral contrast. FINDINGS: Lung base: Compared to previous examination, marked groundglass opacities are again seen involving anayeli th bases characteristic of viral type pneumonitis and Covid pneumonia. Small to moderate size right p leural effusion is again seen. The heart is again enlarged. Abdominal cavity: There is no evidence for abdominal mass, adenopathy or ascites. There is no evidenc e for retroperitoneal hematoma. Liver: There is homogeneous attenuation of the liver parenchyma. There is no evidence for enhancing m ass lesion. Spleen: There is homogeneous attenuation of the splenic parenchyma. There is no enhancing mass lesion . Pancreas: There is homogeneous attenuation of the pancreatic parenchyma. There is no evidence for mas s lesion or peripancreatic fluid collection. Gall Bladder: The gallbladder is now contracted with wall thickening. There is suspicion of noncalcif ied gallstones as well. Gallbladder ultrasound would be the study of choice for further evaluation. Adrenal glands: The adrenal glands are normal in size and attenuation. There is no evidence for enhan cing mass lesion. Kidneys: There is homogeneous attenuation of the renal parenchyma bilaterally. There is no evidence f or renal calculus or hydronephrosis. There is no evidence for enhancing mass. Bowel: The bowel loops are normally placed within the abdomen and pelvis without evidence for dilatat ion or obstruction. There is mild fecal impaction without evidence for obstruction. There is sigmoid diverticulosis without evidence for diverticulitis. There are no inflammatory changes present. There is no evidence for free air. Bladder: Lees catheter is present within the bladder. : There is no evidence for pelvic mass or adenopathy. There is no evidence for pelvic ascites. Ther e is evidence for previous hysterectomy. Vasculature: There is no evidence for aneurysmal dilatation of the abdominal aorta. Extensive atheros clerotic calcification is present. Osseous structures: There is no acute osseous pathology. Degenerative changes are seen within the spi ne. IMPRESSION: 1. No acute intra-abdominal or pelvic abnormality. No evidence for retroperitoneal hematoma. 2. Worsening groundglass opacities of both lung bases and evidence for right pleural effusion charact eristic of Covid pneumonia. 3. Contraction of the gallbladder with wall thickening and suspicion of cholelithiasis. Gallbladder u ltrasound would be the study of choice for further evaluation. 4. Mild fecal impaction without evidence for obstruction. 5. Sigmoid diverticulosis without evidence for diverticulitis. 6. Additional nonacute findings are delineated above. ACT 112: Negative or not required by law. Electronically signed by: Frederick Holder M.D. 07/15/2021 7:28 PM
[2021-07-15] MEDS: DONEPEZIL HCL 5 MG TAB PO SCH (20:14)
[2021-07-16] MEDS: ALBUTEROL 0.083% NEBU SOLN 3 ML VIAL NEB SCH ×2 (01:45→07:10)
[2021-07-16] MEDS: PIPERACILLIN/TAZOBACTAM 3.375 GM in DEXTROSE 5% 100 ML IV SCH (03:34)
--- NOTE | 2021-07-16 06:16 | Communication Note ---
Date of Service: July 16, 2021 subjective: nursing notified me that she was saturating into the mid 80's on BiPAP and had increased work of breathing objective: RR 25 Ox 89 on BiPAP crackles throughout lung chavarria 1+ pitting edema in lower extremity A/P 89 yo F w/ stroke, new onset a. fib and pneumonia currently with increased work of breathing and hypoxia on BiPAP - concerning for fluid overload, holding fluids - continue to monitor for now but could consider Lasix if continued WOB
[2021-07-16 06:20] LABS: Basophils # (auto) 0.02 K/uL (0-0.2); Basophils % (auto) 0.1 %; Eosinophils # (auto) 0.02 K/uL (0-0.5); Eosinophils % (auto) 0.1 %; Hematocrit (blood only) 25.2 % (37-47); Immature Granulocytes # (auto) 0.09 K/uL (0.00-0.02); Immature Granulocytes % (auto) 0.4 %; Lymphocytes % (auto) 2.5 %; Mean Corpuscular Hemoglobin 29.5 pg (25-34); Mean Corpuscular Hgb Conc 31.7 g/dL (32-36); Mean Platelet Volume 9.4 fL (7.4-10.4); Monocytes # (auto) 1.29 K/uL (0.11-0.59); Monocytes % (auto) 6.4 %; Neutrophils # (auto) 18.26 K/uL (1.4-6.5); Neutrophils % (auto) 90.5 %; Platelet Count 387 K/uL (130-400); RDW Coefficient of Variation 13.6 % (11.5-14.5); RDW Standard Deviation 46.4 fL (36.4-46.3); Red Blood Count 2.71 M/uL (4.2-5.4); White Blood Count 20.18 K/uL (4.8-10.8)
[2021-07-16 06:43] LABS: Albumin Globulin Ratio 0.8 (0.9-2); BUN Creatinine Ratio 22.5 (10-20); Bilirubin,Total 0.9 mg/dl (0.2-1.0); Calcium 8.2 mg/dl (8.5-10.1); Creatinine Clr Calc Pharmacy 39.4 ml/min; Est GFR (African American) 75.8 ml/min; Est GFR (Non-African American) 65.4 ml/min; Globulin 3.7 gm/dl (2.5-4.0); Potassium 3.1 mmol/L (3.5-5.1); Total Protein 6.7 gm/dl (6.0-8.3)
[2021-07-16] MEDS: SODIUM CHLORIDE 0.9% 1000ML 1,000 ML IV SCH (07:36)
[2021-07-16] MEDS: ATORVASTATIN 40 MG TAB PO SCH (08:26)
[2021-07-16] MEDS: INSULIN ASPART PER UNIT SC SCH (08:26)
[2021-07-16] MEDS: AZITHROMYCIN 250 MG in DEXTROSE 5% 250 ML IV SCH (08:26)
[2021-07-16] MEDS: SERTRALINE HCL 50 MG TABLET PO SCH (08:27)
[2021-07-16] MEDS: ISOSORBIDE MONO EXTENDED REL 60 MG TABCR PO SCH (08:27)
[2021-07-16] MEDS: PANTOprazole 40 MG TAB PO SCH (08:27)
[2021-07-16] MEDS: ASPIRIN 81 MG ECTAB PO SCH (08:27)
[2021-07-16] MEDS ORDERED: FUROSEMIDE 40 MG/4 ML VIAL IV ONE (08:29)
[2021-07-16] MEDS ORDERED: GLYCOPYRROLATE 0.2 MG/ML VIAL IV PRN (09:49)
[2021-07-16] MEDS ORDERED: STAT IV Infusion **Titration per Protocol STA (09:49)
[2021-07-16] MEDS ORDERED: MoRPHine SULFATE 2 MG/ML CARP IV PRN (09:49)
[2021-07-16] MEDS ORDERED: ATROPINE SULFATE 1% OP SOLN 5 ML BTL SL PRN (09:49)
[2021-07-16] MEDS ORDERED: LORazepam 1 MG/2 ML VIAL IV PRN (09:49)
[2021-07-16] MEDS ORDERED: ONDANSETRON INJ 2 MG/ML 2 ML VIAL IV PRN (09:49)
--- NOTE | 2021-07-16 09:51 | XRay Report ---
XR chest 1V portable CLINICAL HISTORY: hypoxia COMPARISON STUDY: Chest radiograph and chest CT July 13, 2021. FINDINGS: There is no pneumothorax. Small right pleural effusion is present. Extensive bilateral airs pace opacities are noted. Left perihilar opacity has increased. Cardiomegaly is again noted. IMPRESSION: Extensive bilateral airspace opacities consistent with pneumonia. Increase in left perih ilar consolidation. ACT 112: Negative or not required by law. Electronically signed by: Deacon Harrison M.D. 07/16/2021 9:50 AM
--- NOTE | 2021-07-16 09:55 | Hospitalist Progress Note ---
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 of RADHA-f/u as outpt if desired but likely no intervention needed Appreciate Neuro consult-recommends cardiac event monitoring for occult Afib after discharge, continue ASA alone for now ECHO neg bubble study, with mild-mod , normal EF, no thrombus tele in NSR lipids controlled, but added on high intensity statin for CVA -continue ASA 81mg daily -HgbA1C 8.0% with uncontrolled DMII-start back on meds for this, insulin while inpt, metformin as outpt -PT/OT/ST inpatient -permissive HTN for now but will need good BP control after stroke -treating PNA as below -needs cardiac event monitoring with Zio patch, loop recorder after discharge -hgb trending downward and did recommend PRBC transfusion to optimize O2 delivery to brain tissue, but family declines at this time due to likely moving towards [employer] -Repeat CT head repeated on 07/15 due to worsening strength on the pre-existing right hemiparesis-CT negative for acute *Right hemiparesis and overall respiratory status continues to worsen on 07/15. I had a discussion with the patient's and son at length and decision made to continue current care, continue CPAP and continue antibiotics for pneumonia for now. But if patient remains tachypneic, not tolerating CPAP and oxygenation worsening, okay to transition to comfort measures only and use morphine as needed for shortness of breath or pain. Her and son state that her advanced directives note that she would not want any life-saving measures if in a condition with a poor prognosis. I do not think her quality of life will be good at all now given that she has right hemiparesis from stroke on top of ongoing moderate-severe dementia. The patient's son is going to further discuss all of this with his siblings, but he feels this will be the right decision. (2) Encephalopathy: Plan: Acute Encephalopathy - Metabolic likely secondary to hypoxemia and pneumonia complicated by her vascular dementia and CVA - UA negative- urine culture pending -Blood culture with coagulase-negative staph-likely contaminant Repeat blood cultures no growth to date - Continue oxygenation support -treating for CVA as above Was improved slightly on 07/14, now worsening again (3) Pneumonia: Plan: Multilobar likely aspiration/bacterial pneumonia with hypoxia - Patient with extensive opacifications bilaterally, elevated WBC, worsening hypoxia - Awaiting sputum culture -BCxs with 1/2 sets with coagulase-negative Staphylococcus-likely contaminant -Okay to DC IV vancomycin - continue Zosyn IV q6 and Azithromycin for pneumonia -Continue albuterol nebs - cough assist - with flutter valve QID, Chest PT -O2 with CPAP and Oxymask to keep POx>88-90% -She is quite tachypneic -If further decompensates, family desires for her to transition to [employer] (4) Hypoxia: Plan: Hypoxia with respiratory failure requiring CPAP - As above (5) Anemia: Plan: hgb dropped on admission to 8.8 from baseline 12.9 in 08/[address] a/P without significant findings no melena noted here or at home as per does report that she had fairly hard fall right onto her abdomen- repeated CT abdomen/pelvis on 07/15-again no evidence of bleeding intra- abdominally or in RP Iron studies show severe iron deficiency with undetectable serum iron -check fecal occult -continue PPI started here -Give IV Venofer -Family declines PRBC transfusion at this time due to worsening condition and likely will end up transitioning to comfort measures only if decompensates further -Follow CBC in the morning (6) Hyponatremia: Plan: Na+129 on arrival, now up to 132 could be from PNA, CVA, dehydration Continue NS but reduce to 70mL/hr follow BMP in AM (7) Hyperglycemia due to type 2 diabetes mellitus: Plan: BG 382 on admission with HgbA1C 8.0% plan to start metformin on discharge as above continue insulin with Novolog only for now, accuchekcs, ADA diet (8) GERD without esophagitis: Plan: Chronic fecal occult pending Continue po Protonix (9) Hypertension: Plan: Poorly controlled- at this time do not feel this is contributing to her enc ephalopathy permissive HTN as above for CVA NS to keep BPs up hold home amlodipine, atenolol from home, but could potentially restart tomorrow -Avoid hypotension due to recent watershed infarcts (10) Elevated troponin: Plan: Likely type II demand ischemia from hypoxia - no dynamic ECG changes - Troponin 0.1/0.16/0.16 (11) DJD (degenerative joint disease) of knee: Plan: Patient takes Ibuprofen at home with advil qpm on most days - with drop in her HGB will hold this as well as other NSAIDs dc all NSAIDs (12) Age-related physical debility: Plan: Decrease in overall memory and function - PT/OT consult placed -will need rehab (13) Anxiety: Plan: Chronic no acute need (14) CAD (coronary artery disease): Plan: Documented as such, but unable to find vessels- she has not had a cardiac catheterization that is in our system - Continue ASA - Continue Isosorbide - PRN NTG (15) Meningioma: Plan: Found incidentally on CT/MRI of the head - follows with neurology [facility] for routine follow up (16) Hypercholesterolemia: Plan: start statin as above (17) Fall: Plan: as above, 2/2 CVA (18) Dementia: Plan: mod -severe as above supportive care (19) Bacteremia: Plan: as above 1/2 BCxs with regulates negative staph repeat blood cxs-no growth to date Discontinue vancomycin (20) Aortic stenosis: Plan: mild-mod on ECHO follow as outpt Plan: Proph-SCDs due to drop in hgb DIspo-continued stay PCU DNR/DNI Prognosis quite guarded, discussed care with and son at bedside and again on the phone later Admission and Anticipated Discharge Date Admission Date: July 13, 2021 Subjective patient still on CPAP, in distress, tried to remove and she did not do well gave Lasix 40mg IV and got CXR this morning called her son Bipin, he and his step father had discussed [employer] with Dr. Stevenson last night Bipin was able to speak with his siblings last night and this morning, they are all in agreement with [employer] patient's daughter coming in to see her, will remain on CPAP until that time [employer] orders written, RN aware of plan will get morphine drip in place as well as IV pushes to make sure she is not in distress see note, patient peacefully at 1230 with family at bedside Results & Data Results & Data ([facility]) Vital Signs (Past 12 Hours) Vital Signs Temp Pulse Pulse Resp BP BP Pulse Ox 07/16/21 07:34 76 29 H 88 L 07/16/21 07:10 79 29 H 88 L 07/16/21 04:00 37.4 C 95 H 25 H 171/84 H 89 L 07/16/21 01:46 97 H 103 H 25 H 92 07/15/21 22:54 37.2 C 108 H 20 176/92 H 94 PG Care Time/CCT Total # of Minutes Spent Total Time Spent with Patient: Total time spent is greater than 50% in coordination of care (as documented) at patient's floor/unit and/or counseling patient: Coding Level of Care Code None Diagnoses Ischemic cerebrovascular accident (CVA) I63.9 Encephalopathy G93.40 Pneumonia J18.9 Hypoxia R09.02 Anemia D64.9 Anemia type: unspecified type Hyponatremia E87.1 Hyperglycemia due to type 2 diabetes mellitus E11.65 GERD without esophagitis K21.9 Hypertension I10 Elevated troponin R77.8 DJD (degenerative joint disease) of knee M17.10 Age-related physical debility R54 Anxiety F41.9 CAD (coronary artery disease) I25.10 Meningioma D32.9 Hypercholesterolemia E78.00 Fall W19.XXXA Dementia F03.90 Bacteremia R78.81 Aortic stenosis I35.0 (1) Anemia Anemia type: unspecified type Qualified Code(s): D64.9 - Anemia, unspecified
[2021-07-16] MEDS ORDERED: MoRPHine SULF/NSS 250 MG/250 ML BTL IV SCH (10:00)
--- NOTE | 2021-07-16 12:57 | Death Pronouncement Note ---
Date of Service July 16, 2021 Pronouncement Note Admission Date Admission Date: July 13, 2021 Date and Time of Date of : 07/16/21 Time of : 12:30 PCOD Preliminary cause of : Pneumonia Contributing Factors (1) Pneumonia: (2) Ischemic cerebrovascular accident (CVA): (3) Encephalopathy: (4) Hypoxia: (5) Anemia: (6) Hyponatremia: (7) Hyperglycemia due to type 2 diabetes mellitus: (8) GERD without esophagitis: (9) Hypertension: (10) Elevated troponin: (11) DJD (degenerative joint disease) of knee: (12) Age-related physical debility: (13) Anxiety: (14) CAD (coronary artery disease): (15) Meningioma: (16) Hypercholesterolemia: (17) Fall: (18) Dementia: (19) Bacteremia: (20) Aortic stenosis: Hospital Course Hospital Course: see discharge summary for details Additional Data Confirmation of : no pulse, no respirations, no heart sounds and pupils fixed and dilated Family: at bedside Attending/PCP notified?: Yes Attending physician: Andry Bazan, DO Was code activated?: No Coding Level of Care Code None Diagnoses Ischemic cerebrovascular accident (CVA) I63.9 Encephalopathy G93.40 Pneumonia J18.9 Hypoxia R09.02 Anemia D64.9 Anemia type: unspecified type Hyponatremia E87.1 Hyperglycemia due to type 2 diabetes mellitus E11.65 GERD without esophagitis K21.9 Hypertension I10 Elevated troponin R77.8 DJD (degenerative joint disease) of knee M17.10 Age-related physical debility R54 Anxiety F41.9 CAD (coronary artery disease) I25.10 Meningioma D32.9 Hypercholesterolemia E78.00 Fall W19.XXXA Dementia F03.90 Bacteremia R78.81 Aortic stenosis I35.0
--- NOTE | 2021-07-16 13:03 | Discharge Summary ---
Date of Service July 16, 2021 Admission HPI Per Admitting Provider 89 YOF with past medical history of: CAD, HTN, HLD, Anxiety, GERD, DM II, Meningioma, Dementia, PAF, hiatal hernia. Patient comes to the EMD today for concerns of stroke. Symptoms were noted to start approx 4-5 days ago where she was noted to be having weakness of her right leg and has also had 3-4 falls during this time. They also noted during that time that she became more lethargic with decrease in eating and communicating. She reportedly fell on her right side and stomach/chest. In the EMD she was not stroke alerted secondary to her last known well. She had routine CT of head, CTA of neck, CT of chest, and routine labs performed to include Troponin I. Her CT scan of her head and neck was negative for actue large vessel stroke, bleed, or mass. Her CT scan of her chest revealed bilateral opacities, lymphadenopathy and tracheomalacia. She was noted to be hypoxic as well. She was placed on oxymask with some improvement and was started on Zosyn. The hospitalist team was consulted for admission. Patient is arousable and follows commands but does not voice much, she is tachypneic, and I did review her imaging with her son and daughter at the bedside- patient has bilateral pneumonia which likely has a component to aspiration to it. We reviewed possible intubation and mechanical ventilation with her history and tracheal malacia that weaning from the ventilator will likely not be successful as well as her other comorbidities. We elected for conservative treatment of her pulmonary disease with CPAP/BiPAP continue Zosyn and Azithromycin. Patient also with decrease in her HGB level with abdominal pain and discomfort. Her fecal occult was negative in the EMD, she is also noted to have a bruise to her right hip from her previous falls at home. CT of the abdomen and pelvis was ordered by EMD physician. Will start her on Protonix IV BID. She is also noted to be hyperglycemia on her labs without evidence of DKA. She stopped her Metformin years ago and does not appear to be on any therapy at home. Overall this is a acutely ill female with likely aspiration and bacterial pneumonia with high likley belle of decompensation. As above discussed with family and will continue with conservative care, she is DNR/DNI after confirmation with their siblings. Will continue to treat and support her. We will need to obtain MRI to rule out CVA after evaluating her abdomen/pelvis/hip and pulmonary status. Patient COVID test on admission is: NEGATIVE Principal Diagnosis Acute hypoxic respiratory failure from multifocal pneumonia Discharge Exam no pulse, no respirations, no heart tones, no breath sounds, pupils fixed Discharge Data Allergies Allergy/AdvReac Type Severity Reaction Status Date / Time diflunisal Allergy Unknown SWELLING Verified 07/12/21 15:32 Consultations 07/13/21 13:10 ED Decision to Admit Stat 07/14/21 09:59 Consult Neurology Routine Ordered Studies 07/13/21 12:10 CT angio head w con Stat CT angio neck with con Stat CT head/brain wo con Stat 07/13/21 12:22 CT chest diagnostic wo con Stat 07/13/21 13:47 CT abd pelvis wo con Stat 07/13/21 13:52 CT hip RT wo con Stat 07/13/21 15:03 MR brain wo con Routine 07/15/21 17:06 CT abd pelvis IV con only Urgent CT head/brain wo con Urgent Hospital Course (1) Pneumonia: Multilobar likely aspiration/bacterial pneumonia with hypoxia - Patient with extensive opacifications bilaterally, elevated WBC, worsening hypoxia - got worse despite treatment with antibiotics - progressed to needing CPAP continuously, essentially in respiratory failure family wished to change to TIP STITCHER morphine drip started, removed CPAP patient peacefully with family at the bedside (2) Ischemic cerebrovascular accident (CVA): WIth right sided hemiparesis, bilat CVAs on MRI brain, consistent with embolic vs watershed Suspect possibly had PNA and hypotension at home leading to stroke and watershed infarct vs occult Afib CTA head and neck with mutifocal high grade stenoses at A2 segment left BERTA and left [employer] and P2 segment, and 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 of RADHA-f/u as outpt if desired but likely no intervention needed Appreciate Neuro consult-recommends cardiac event monitoring for occult Afib after discharge, continue ASA alone for now ECHO neg bubble study, with mild-mod , normal EF, no thrombus tele in NSR lipids controlled, but added on high intensity statin for CVA -continue ASA 81mg daily -HgbA1C 8.0% with uncontrolled DMII-start back on meds for this, insulin while inpt, metformin as outpt -PT/OT/ST inpatient -permissive HTN for now but will need good BP control after stroke -treating PNA as below -needs cardiac event monitoring with Zio patch, loop recorder after discharge -hgb trending downward and did recommend PRBC transfusion to optimize O2 delivery to brain tissue, but family declines at this time due to likely moving towards TIP STITCHER -Repeat CT head repeated on 07/15 due to worsening strength on the pre-existing right hemiparesis-CT negative for acute patient changed to TIP STITCHER due to pneumonia and respiratory failure (3) Encephalopathy: Acute Encephalopathy - Metabolic likely secondary to hypoxemia and pneumonia complicated by her vascular dementia and CVA - UA negative- urine culture pending -Blood culture with coagulase-negative staph-likely contaminant Repeat blood cultures no growth to date - Continue oxygenation support -treating for CVA as above (4) Hypoxia: Hypoxia with respiratory failure requiring CPAP - As above desaturating despite CPAP on 07/16/21 changed to TIP STITCHER (5) Anemia: hgb dropped on admission to 8.8 from baseline 12.9 in 08/[address] a/P without significant findings no melena noted here or at home as per does report that she had fairly hard fall right onto her abdomen- repeated CT abdomen/pelvis on 07/15-again no evidence of bleeding intra- abdominally or in RP Iron studies show severe iron deficiency with undetectable serum iron (6) Hyponatremia: Na+129 on arrival, now up to 132 could be from PNA, CVA, dehydration (7) Hyperglycemia due to type 2 diabetes mellitus: BG 382 on admission with HgbA1C 8.0% changed to TIP STITCHER (8) GERD without esophagitis: Chronic fecal occult pending Continue po Protonix (9) Hypertension: Poorly controlled- at this time do not feel this is contributing to her encephalopathy permissive HTN as above for CVA NS to keep BPs up hold home amlodipine, atenolol from home, but could potentially restart tomorrow -Avoid hypotension due to recent watershed infarcts (10) Elevated troponin: Likely type II demand ischemia from hypoxia - no dynamic ECG changes - Troponin 0.1/0.16/0.16 (11) DJD (degenerative joint disease) of knee: Patient takes Ibuprofen at home with advil qpm on most days - with drop in her HGB will hold this as well as other NSAIDs dc all NSAIDs (12) Age-related physical debility: Decrease in overall memory and function - PT/OT consult placed -will need rehab (13) Anxiety: Chronic no acute need (14) CAD (coronary artery disease): Documented as such, but unable to find vessels- she has not had a cardiac catheterization that is in our system - Continue ASA - Continue Isosorbide - PRN NTG (15) Meningioma: Found incidentally on CT/MRI of the head - follows with neurology [facility] for routine follow up (16) Hypercholesterolemia: start statin as above (17) Fall: as above, 2/2 CVA (18) Dementia: mod -severe as above supportive care (19) Bacteremia: as above 1/2 BCxs with regulates negative staph repeat blood cxs-no growth to date Discontinue vancomycin (20) Aortic stenosis: mild-mod on ECHO follow as outpt TIP STITCHER Total Time Total Time Spent Total Time Spent (In Minutes): 33 minutes Discharge Plan Discharge Items Reason For Visit: WEAKNESS, DYSNPNEA, HYPOXIA Follow-up/Referrals: Marisa Apodaca CRNP [Primary Care Provider] - Medications and DC Order Prescriptions: No Action isosorbide mononitrate 60 mg tablet extended release 24 hr 60 mg PO DAILY Qty: 90 RF: 3 sertraline 50 mg tablet 25 mg PO DAILY Qty: 90 RF: 3 loteprednol etabonate 0.5 % drops,suspension 1 drops OP DAILY RF: 0 vitamins A,C,S-vivx-ahlzwj 1 tab PO BID RF: 0 nitroglycerin 0.4 mg tablet, sublingual 0.4 mg SL Q5M PRN (Reason: chest pain) Qty: 25 RF: 5 hydrocortisone [Proctosol HC] 2.5 % cream with perineal applicator 1 applic RI DAILY PRN (Reason: hemorrhoids) Qty: 30 RF: 1 meclizine 25 mg tablet See Rx Instructions .ROUTE .COMPLEX Qty: 30 RF: 3 polyethylene glycol 3350 [Miralax] 17 gram/dose powder 17 gm PO DAILY PRN (Reason: Constipation) RF: 0 triamcinolone acetonide 0.1 % cream 1 applic topical BID Qty: 30 RF: 1 fexofenadine 180 mg tablet 180 mg PO DAILY Qty: 30 RF: 5 aspirin [Aspir-Low] 81 mg Tablet,Delayed Release (Dr/Ec) 81 mg PO DAILY RF: 0 acetaminophen [Tylenol Extra Strength] 500 mg Tablet 1,000 mg PO Q6H PRN (Reason: Pain) RF: 0 calcium carbonate 160 mg calcium (400 mg) Tablet,Chewable 0 mg PO DAILY RF: 0 Advil PM 200-38 mg Tablet 1 cap PO HS RF: 0 donepezil [Aricept] 5 mg tablet 5 mg PO HS RF: 0 amlodipine 5 mg tablet 5 mg PO DAILY RF: 0 omeprazole 40 mg capsule,delayed release(DR/EC) 40 mg PO DAILY RF: 0 atenolol 50 mg tablet 50 mg PO DAILY RF: 0 Admission Data Admit Date/Time: 07/13/21 14:24 Attending Provider: Andry Bazan Admit Provider: Beni Russell Primary Care Provider: Marisa Apodaca Other Providers: Beni Russell ; Alpesh De Leon ; [facility] ; [facility] Coding Level of Care Code D/C DAY MANAGEMENT >30 MINS Diagnoses Pneumonia J18.9 Ischemic cerebrovascular accident (CVA) I63.9 Encephalopathy G93.40 Hypoxia R09.02 Anemia D64.9 Anemia type: unspecified type Hyponatremia E87.1 Hyperglycemia due to type 2 diabetes mellitus E11.65 GERD without esophagitis K21.9 Hypertension I10 Elevated troponin R77.8 DJD (degenerative joint disease) of knee M17.10 Age-related physical debility R54 Anxiety F41.9 CAD (coronary artery disease) I25.10 Meningioma D32.9 Hypercholesterolemia E78.00 Fall W19.XXXA Dementia F03.90 Bacteremia R78.81 Aortic stenosis I35.0
== END 2021-07-16 16:15 | disposition expired | DRG 64 ==
LOC: ED 12:03 → 2S 14:24 → SUATTDRO 14:24 → 2S 15:27